=== PATIENT | female | born 1995 | race Caucasian/White ===

== ENCOUNTER 2018-06-25 08:20 | Emergency (ER) | payer MEDICAID, SELFPAY ==
[2018-06-25] VITALS (36 sets, daily range): BP systolic 87–109; BP diastolic 40–79; PULSE 75–165; RESP 10–20; TEMP 36.7; O2SAT 98–100
--- NOTE | 2018-06-25 08:40 | ED.GENADUL_ITS ---
Discharge Plan Disposition Patient Disposition: HOME Condition: Stable Discharge Details Chief Complaint: Nausea/Vomit/Diar Clinical Impression: Vomiting, Hypokalemia, Elevated liver enzymes Primary Care Provider: Terry Armenta ED Provider: Glory Minor Home Meds and New Rx's Prescriptions: Continued hydroxyzine pamoate 25 MG capsule 50 mg PO Q6H PRNRF: 0 lamotrigine 25 mg Tablet 25 mg PO BID RF: 0 buprenorphine-naloxone [Suboxone] 1 EACH film 6 mg PO DAILY RF: 0 Discontinued oseltamivir [Tamiflu] 75 MG capsule 75 mg PO BID Qty: 10 RF: 0 Discharge Instructions Instructions: Hypokalemia (ED), Acute Nausea and Vomiting (ED) Additional Instructions: Please return immediately to the emergency department if you develop any new or worsening symptoms or if you become otherwise concerned. Your liver enzyme function tests were elevated today. A hepatitis panel has been sent. It is extremely important that you make an appointment to be seen by your primary care doctor as soon as possible in follow-up for this visit. Referrals: Terry Armenta [Primary Care Provider] - Discharge Data Discharge Date/Time-TO BE ENTERED AT DEPARTURE: 06/25/18 14:25 Medical Decision Making Herlinda Paulson is a 23-year-old woman with history of anxiety, depression, opiate use in the past currently on Suboxone presenting to the emergency department with nausea and vomiting along with mild diarrhea for 2 days after using methamphetamine. On exam patient is nauseated but appears nontoxic. She is tachycardic but otherwise has a benign cardiopulmonary and abdominal exam. Concern for dehydration, metabolic/lyte derangement, gastroenteritis, methamphetamine effect (particularly as patient reports that she has had similar symptoms in the past after methamphetamine use). Exam/history is not consistent with sepsis, meningitis, acute emergent intra-abdominal or intracranial process, other acute emergent life-threatening process. Plan for screening labs, IV fluid hydration, IV Zofran, IV Ativan, telemetry. Will monitor and reassess. Labs show hypokalemia and an elevated liver enzymes. Patient does not recall having history of elevated liver enzymes. Without any tenderness of the abdomen or abdominal pain, doubt acute hepatitis as etiology of symptoms at this time. We will send hepatitis panel. Potassium repleted. Patient reported feeling much better after fluids, passed p.o. challenge without issue. Patient requesting discharge to home. I had a lengthy discussion with patient regarding return to emergency department precautions, home care, and importance of outpatient follow-up with her PCP. Patient verbalized understanding of the plan and is amenable. All questions answered. Medical Records Medical records reviewed: Yes I reviewed the patient's medical records. Lab Data Lab results reviewed: Yes I reviewed the patient's lab results. HPI General Mode of arrival: ambulatory . Date/Time Provider Initiated Documentation: 06/25/18 08:39 . Limitations to Documentation: no limitations . Information obtained by: patient . HPI Narrative: Herlinda Paulson is a 23 y/o woman with history of opiate use in the past, anxiety, depression presenting to the emergency department with vomiting. Patient reports that she is on Suboxone for opiate use in the past, but has not used recreational drugs in some time. Patient reports that 2 days ago she used methamphetamine, and since using that drug has had persistent vomiting. She reports that she has not been able to hold food or fluids down. Patient reports that she has mild abdominal pain and sore throat that developed after vomiting began, and is present only with vomiting. She denies any current pain. No fevers, shortness of breath, cough, rash. She reports some mild diarrhea and no constipation. No dysuria. Patient reports no other recent illness and no recent travel. Related Data Home Medications Medication Instructions Recorded Confirmed hydroxyzine pamoate 50 mg PO Q6H PRN tab-cap 07/04/15 06/25/18 buprenorphine-naloxone [Suboxone] 6 mg PO DAILY 05/23/17 06/25/18 lamotrigine 25 mg PO BID 06/25/18 06/25/18 Allergies Allergy/AdvReac Type Severity Reaction Status Date / Time No Known Allergies Allergy Unverified 06/25/18 17:04 General Stated Complaint: Nausea/Vomit/Diar MARGIE: 3 Review of Systems Review of Systems Constitutional: denies fevers Eyes: denies eye pain ENT: denies facial pain, dental pain, reports sore throat with vomiting Cardiovascular: denies chest pain Respiratory: denies SOB, cough GI: Reports abdominal pain during vomiting, vomiting, mild diarrhea : denies flank pain MSK: denies back pain, neck pain, arthralgias, myalgias Skin: denies rash Neuro: denies headaches, numbness, weakness [facility] Medical History Anxiety History of drug abuse Family History Mother No problems noted. Father Heart disease Social History Smoking/Tobacco Use Status: Never Drug use: Never Do you feel safe in your relationship?: Yes Exam Narrative Exam Narrative: Constitutional: Appears nauseous but non-toxic, pleasant, conversing normally HENT: head atraumatic/normocephalic/normal inspection, mucous membranes moist, posterior pharynx normal Eyes: conjunctiva normal, sclera normal, pupils 3mm b/l Neck: no stridor, normal ROM, trachea midline Chest: normal inspection Resp: normal work of breathing, LCTAB Cardio: normal rate, normal rhythm, no murmur appreciated GI: abdomen soft, non-tender, non-distended Back: normal inspection, no rash Skin: warm, dry, normal color, no rash Neuro: alert, not altered, grossly non-focal, normal tone Ext: no edema Psych: normal mood, normal affect, normal behavior Course Vital Signs Temperature 36.7 C 06/25/18 08:26 Pulse 134 H 06/25/18 08:26 Respiratory Rate 20 06/25/18 08:26 Blood Pressure 102/79 06/25/18 08:26 Pulse Oximetry 100 06/25/18 08:26 Temperature 36.7 C 06/25/18 08:26 Temperature Source Skin 06/25/18 08:26 Pulse 134 H 06/25/18 08:26 Respiratory Rate 20 06/25/18 08:26 Blood Pressure 102/79 06/25/18 08:26 Blood Pressure Position Sitting 06/25/18 08:26 Pulse Oximetry 100 06/25/18 08:26 Oxygen Delivery Method Room Air 06/25/18 08:26 Oxygen Flow Rate 0 06/25/18 08:26 Pain Level 7 06/25/18 08:26
[2018-06-25] MEDS: Normal Saline 1,000 ML 1000 ML IV (09:00)
[2018-06-25] MEDS: Ondansetron 4 MG/2 ML VIAL IVP (09:10)
[2018-06-25] MEDS: LORazepam 2 MG/ML VIAL 0.5 MG IVP (09:15)
[2018-06-25 09:24] LABS: Abs Immature Grans 0.01 k/cumm (0.0-0.09); Absolute Basophil Count 0.01 k/cumm (0.0-0.2); Absolute Eosinophil Count 0.03 k/cumm (0.0-0.7); Absolute Lymphocyte Count 2.23 k/cumm (1.2-3.4); Absolute Monocyte Count 0.67 k/cumm (0.11-0.7); Absolute Neutrophil Count 6.16 k/cumm (1.2-6.7); Basophils % 0.1; Eosinophils % 0.3; HCT 42.7 % (36.0-46.0); HGB 14.3 g/dL (12.0-15.5); Immature Grans % 0.1; Lymphocytes % 24.5; Mean Corp. HGB Concentration 33.5 g/dL (32.0-36.0); Mean Corpuscular Hemoglobin 28.7 pg (27.0-33.0); Mean Corpuscular Volume 85.6 fL (80-95); Mean Platelet Volume 9.2 fL (8.0-11.0); Monocytes % 7.4; Neutrophils % 67.6; Platelet Count 451 x1000/uL (130-400); RBC 4.99 m/cumm (4.00-5.20); White Blood Cell Count 9.11 k/cumm (4.4-10.8)
[2018-06-25 09:35] LABS: Bilirubin Small (Negative); Blood Negative (Negative); Clarity Clear; Glucose Negative (Negative); Ketones >=160 mg/dL (Negative); Leukocyte Esterase Trace (Negative); Nitrite Negative (Negative); Specific Gravity 1.025 (1.005-1.025); Urobilinogen 0.2 EU/dL (Up TO 0.2); pH 6.5 (5-8)
[2018-06-25 09:42] LABS: Bacteria Few HPF (Negative); C & S Indicated? No/Sq. Contamination; Casts Negative LPF (Negative); Crystals Negative HPF (Negative); Epithelial Cells Many HPF (Negative); Mucus Moderate (Negative); RBC Negative (0-2)
[2018-06-25 09:59] LABS: ALT 289 U/L (12-78); AST 130 U/L (15-37); Albumin 4.9 g/dL (3.4-5.0); Alkaline Phosphatase 75 U/L (46-116); Anion Gap 14.7 mmol/L (3-11); BUN 21 mg/dL (7-18); Bilirubin, Total 0.8 mg/dL (0.2-1.0); CO2 29.3 mmol/L (21.0-32.0); CREATININE 0.94 mg/dL (0.55-1.02); Calcium 9.5 mg/dL (8.5-10.1); Chloride 95 mmol/L (98-107); Glucose 76 mg/dL (70-100); Lipase 122 U/L (73-393); Sodium 139 mmol/L (136-145); Total Protein 9.3 g/dL (6.4-8.2)
[2018-06-25 10:02] LABS: Potassium 2.9 mmol/L (3.5-5.1)
[2018-06-25] MEDS: POTASSIUM CHLORIDE 20 MEQ/100 ML BAG 50 MEQ IVPB (10:14)
[2018-06-25] MEDS: Potassium Chloride 20 MEQ TABCR 40 MEQ PO (12:02)
--- NOTE | 2018-06-25 14:05 | PDOC.ERCMPRO ---
Care Management Progress Note 06/25-Dr. Lila Minor requested this CM meet with Herlinda as she is having some social issues. Met with Herlinda. Herlinda states she is going to be evicted from her apartment tomorrow because she has not paid the rent. She states she is behind with her heat and lights as well. Herlinda states things have just been worse the past six months or so. Herlinda lives alone with her dog (who she identifies as a therapy, emotional support dog for her. 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 PCP is Conner Armenta. Discussed family supports. Herlinda states that her mom lives in [place], (she states she has a good relationship with her mom) and that two of her sisters along with their boyfriends live with her mother so there isn't room for her. Herlinda states mom also has boyfriend that lives in the home. Discussed [facility]. Herlinda is in agreement with a meeting at [facility] to see if there is any assistance that they can give her. This CM called [facility] and spoke with Shai. Shai states he will meet with Herlinda this afternoon. Dr. Shanice Mionr aware and in agreement with the above. Herlinda has this CM's contact information if further assistance is needed.
--- NOTE | 2018-06-25 14:11 | CMPROGNOTE_ITS ---
Care Management Progress Note 06/25-Dr. Lila Minor requested this CM meet with Herlinda as she is having some social issues. Met with Herlinda. Herlinda states she is going to be evicted from her apartment tomorrow because she has not paid the rent. She states she is behind with her heat and lights as well. Herlinda states things have just been worse the past six months or so. Herlinda lives alone with her dog (who she identifies as a therapy, emotional support dog for her. 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 PCP is Conner Armenta. Discussed family supports. Herlinda states that her mom lives in [place], (she states she has a good relationship with her mom) and that two of her sisters along with their boyfriends live with her mother so there isn't room for her. Herlinda states mom also has boyfriend that lives in the home. Discussed [facility]. Herlinda is in agreement with a meeting at [facility] to see if there is any assistance that they can give her. This CM called [facility] and spoke with Shai. Shai states he will meet with Herlinda this afternoon. Dr. Shanice Minor aware and in agreement with the above. Herlinda has this CM's contact information if further assistance is needed.
[2018-06-25] MEDS: Ondansetron O.D.T. 4 MG TABEF PO (14:23)
--- NOTE | 2018-06-25 15:48 | NUR.NOTE ---
Nursing Note: Patient called stating that her hands were locking up and shaking. This is what was happening when she first got here. Does not know what to do? Message was given to Dr. Shanice Minor and she was going to return her call. However, patient returned and arrived here at 1548. Esha Platt.
[2018-06-26 14:49] LABS: Hepatitis A Antibody IgM Negative (NEGAT); Hepatitis B Core Antibody Negative (NEGAT); Hepatitis B surface Ag Negative (NEGAT); Hepatitis C Ab w Rflx HCV PCR Reactive (NEGAT)
== END 2018-06-25 14:25 | disposition home or self-care (01) ==
PROVIDERS: Emergency Provider Student in an Organized Health Care Education/Training Program; PCP Nurse Practitioner
DX: R11.10 Vomiting, unspecified (principal); E87.6 Hypokalemia; R94.5 Abnormal results of liver function studies
CPT/HCPCS: 36415; 80053; 81025; 83690; 86704; 86709; 86803; 87340; 96361; 96365; 96366; 96375; 99284; 81003; 81015; 85025; 87522; J2060; J2405; J3480

== ENCOUNTER 2018-06-25 15:47 | Emergency (ER) | payer MEDICAID, SELFPAY ==
[2018-06-25 15:50] VITALS: BP 104/76; PULSE 89; RESP 22; TEMP 37.2; O2SAT 100
--- NOTE | 2018-06-25 16:31 | W.ED.GENAD ---
Discharge Plan Disposition Patient Disposition: HOME Condition: Stable Discharge Details Chief Complaint: Recheck Clinical Impression: Cramping of hands, Tremor of both hands Reason For Visit: hands locking up Primary Care Provider: Terry Armenta ED Provider: Glory Minor Home Meds and New Rx's Prescriptions: Continued hydroxyzine pamoate 25 MG capsule 50 mg PO Q6H PRNRF: 0 lamotrigine 25 mg Tablet 25 mg PO BID RF: 0 buprenorphine-naloxone [Suboxone] 1 EACH film 6 mg PO DAILY RF: 0 Discharge Instructions Instructions: Muscle Cramp (ED), Anxiety (ED), Tremors (ED) Additional Instructions: Please return immediately to the emergency department if you develop any new or worsening symptoms or if you become otherwise concerned. It is extremely important that you make an appointment to be seen by your primary care doctor soon as possible. Referrals: Terry Armenta [Primary Care Provider] - Discharge Data Discharge Date/Time-TO BE ENTERED AT DEPARTURE: 06/25/18 18:15 Medical Decision Making Herlinda Fraser is a 23-year-old woman with history of anxiety, depression, opiate drug use in the past now on Suboxone who presented to the emergency department this afternoon for hand tremor and cramping after being seen earlier today for vomiting and discharge. On exam patient is well and nontoxic appearing. She does have some tremor of bilateral hands, however on observation during our conversation, while distracted hand tremor improved significantly. Her neurologic exam is nonfocal. Symptoms possibly related to hypokalemia diagnosed at last visit, possible hypomagnesemia, but suspect symptoms are likely due to anxiety. I had a lengthy discussion with the patient regarding this probability, and she agreed that symptoms do seem significantly worse with anxiety. Patient reports that she would not have presented to the emergency department, and tried to call in for advice for how to manage her anxiety at home, but decided it would be easier for her to return to emergency department and speak with the doctor in person. Magnesium not drawn earlier, plan for magnesium level. Patient feels much better without intervention and request discharge at this time. She believes that her symptoms were all related to her chronic waxing and waning anxiety. I had a lengthy discussion with the patient return to emergency department precautions, regarding anxiety management techniques, home care, and importance of outpatient follow-up with patient's PCP. Patient verbalized understanding of the plan and was amenable. All questions were answered. Medical Records Medical records reviewed: Yes I reviewed the patient's medical records. Lab Data Lab results reviewed: Yes I reviewed the patient's lab results. HPI General Mode of arrival: ambulatory. Date/Time Provider Initiated Documentation: 06/25/18 16:23. Limitations to Documentation: no limitations. Information obtained by: patient. HPI Narrative: Herlinda Paulson is a 33-year-old woman with history of anxiety, depression, opiate drug use in the past now on Suboxone who presented to the emergency department earlier today for vomiting, now returning for sensation that her hands are locking up. Patient reports that she went to [facility] after her earlier ER visit as was planned, but while there she felt that her hands had significant tremor and also started to lock up, in which her thumbs seem to cramp into her palms. Symptoms were bilateral and symmetric. Patient reports that symptoms were the same prior to her arrival in the ER for her morning visit today, but resolved during that visit and she did not mention her symptoms at that time. Patient reports that symptoms seem to have improved somewhat since arriving back in the emergency department again, but she has continued tremor of both hands. She denies weakness, numbness, tingling. She reports no further vomiting since her discharge, and otherwise feels better than she has in several days. Related Data Home Medications Medication Instructions Recorded Confirmed hydroxyzine pamoate 50 mg PO Q6H PRN tab-cap 07/04/15 06/25/18 buprenorphine-naloxone [Suboxone] 6 mg PO DAILY 05/23/17 06/25/18 lamotrigine 25 mg PO BID 06/25/18 06/25/18 Allergies Allergy/AdvReac Type Severity Reaction Status Date / Time No Known Allergies Allergy Unverified 06/25/18 17:04 General Stated Complaint: Recheck MARGIE: 4 Review of Systems Review of Systems Constitutional: denies fevers Eyes: denies eye pain ENT: denies facial pain, dental pain, sore throat Cardiovascular: denies chest pain Respiratory: denies SOB, cough GI: denies abdominal pain, vomiting, diarrhea : denies flank pain MSK: denies back pain, neck pain, arthralgias, myalgias, reports hand cramping Skin: denies rash Neuro: denies headaches, numbness, weakness, reports hand tremor PFSH Family History Mother No problems noted. Father Heart disease Social History Smoking/Tobacco Use Status: Never Drug use: Never Do you feel safe in your relationship?: Yes Exam Narrative Exam Narrative: Constitutional: well and [id number], pleasant, conversing normally HENT: head atraumatic/normocephalic/normal inspection, mucous membranes moist Eyes: conjunctiva normal, sclera normal, pupils 3mm b/l Neck: no stridor, normal ROM, trachea midline Resp: normal work of breathing Cardio: normal rate, normal rhythm Skin: warm, dry, normal color, no rash Neuro: alert, not altered, grossly non-focal, normal tone, slight tremor bilateral hands, this resolves during conversation Psych: Mildly anxious mood, normal affect, normal behavior Course Vital Signs Temperature 37.2 C 06/25/18 15:50 Pulse 89 06/25/18 15:50 Respiratory Rate 22 06/25/18 15:50 Blood Pressure 104/76 06/25/18 15:50 Pulse Oximetry 100 06/25/18 15:50 Temperature 37.2 C 06/25/18 15:50 Temperature Source Temporal Artery Scan 06/25/18 15:50 Pulse 89 06/25/18 15:50 Respiratory Rate 22 06/25/18 15:50 Blood Pressure 104/76 06/25/18 15:50 Pulse Oximetry 100 06/25/18 15:50 Oxygen Delivery Method Room Air 06/25/18 15:50 Oxygen Flow Rate 0 06/25/18 15:50
--- NOTE | 2018-06-25 17:03 | ED.GENADUL_ITS ---
Discharge Plan Disposition Patient Disposition: HOME Condition: Stable Discharge Details Chief Complaint: Recheck Clinical Impression: Cramping of hands, Tremor of both hands Reason For Visit: hands locking up Primary Care Provider: Terry Armenta ED Provider: Glory Minor Home Meds and New Rx's Prescriptions: Continued hydroxyzine pamoate 25 MG capsule 50 mg PO Q6H PRNRF: 0 lamotrigine 25 mg Tablet 25 mg PO BID RF: 0 buprenorphine-naloxone [Suboxone] 1 EACH film 6 mg PO DAILY RF: 0 Discharge Instructions Instructions: Muscle Cramp (ED), Anxiety (ED), Tremors (ED) Additional Instructions: Please return immediately to the emergency department if you develop any new or worsening symptoms or if you become otherwise concerned. It is extremely important that you make an appointment to be seen by your primary care doctor soon as possible. Referrals: Terry Armenta [Primary Care Provider] - Discharge Data Discharge Date/Time-TO BE ENTERED AT DEPARTURE: 06/25/18 18:15 Medical Decision Making Herlinda Fraser is a 23-year-old woman with history of anxiety, depression, opiate drug use in the past now on Suboxone who presented to the emergency department this afternoon for hand tremor and cramping after being seen earlier today for vomiting and discharge. On exam patient is well and nontoxic appearing. She does have some tremor of bilateral hands, however on observation during our conversation, while distracted hand tremor improved significantly. Her neurologic exam is nonfocal. Symptoms possibly related to hypokalemia diagnosed at last visit, possible hypomagnesemia, but suspect symptoms are likely due to anxiety. I had a lengthy discussion with the patient regarding this probability, and she agreed that symptoms do seem significantly worse with anxiety. Patient reports that she would not have presented to the emergency department, and tried to call in for advice for how to manage her anxiety at home, but decided it would be easier for her to return to emergency department and speak with the doctor in person. Magnesium not drawn earlier, plan for magnesium level. Patient feels much better without intervention and request discharge at this time. She believes that her symptoms were all related to her chronic waxing and waning anxiety. I had a lengthy discussion with the patient return to emergency department precautions, regarding anxiety management techniques, home care, and importance of outpatient follow-up with patient's PCP. Patient verbalized understanding of the plan and was amenable. All questions were answered. Medical Records Medical records reviewed: Yes I reviewed the patient's medical records. Lab Data Lab results reviewed: Yes I reviewed the patient's lab results. HPI General Mode of arrival: ambulatory . Date/Time Provider Initiated Documentation: 06/25/18 16:23 . Limitations to Documentation: no limitations . Information obtained by: patient . HPI Narrative: Herlinda Paulson is a 33-year-old woman with history of anxiety, depression, opiate drug use in the past now on Suboxone who presented to the emergency department earlier today for vomiting, now returning for sensation that her hands are locking up. Patient reports that she went to [facility] after her earlier ER visit as was planned, but while there she felt that her hands had significant tremor and also started to lock up, in which her thumbs seem to cramp into her palms. Symptoms were bilateral and symmetric. Patient reports that symptoms were the same prior to her arrival in the ER for her morning visit today, but resolved during that visit and she did not mention her symptoms at that time. Patient reports that symptoms seem to have improved somewhat since arriving back in the emergency department again, but she has continued tremor of both hands. She denies weakness, numbness, tingling. She reports no further vomiting since her discharge, and otherwise feels better than she has in several days. Related Data Home Medications Medication Instructions Recorded Confirmed hydroxyzine pamoate 50 mg PO Q6H PRN tab-cap 07/04/15 06/25/18 buprenorphine-naloxone [Suboxone] 6 mg PO DAILY 05/23/17 06/25/18 lamotrigine 25 mg PO BID 06/25/18 06/25/18 Allergies Allergy/AdvReac Type Severity Reaction Status Date / Time No Known Allergies Allergy Unverified 06/25/18 17:04 General Stated Complaint: Recheck MARGIE: 4 Review of Systems Review of Systems Constitutional: denies fevers Eyes: denies eye pain ENT: denies facial pain, dental pain, sore throat Cardiovascular: denies chest pain Respiratory: denies SOB, cough GI: denies abdominal pain, vomiting, diarrhea : denies flank pain MSK: denies back pain, neck pain, arthralgias, myalgias, reports hand cramping Skin: denies rash Neuro: denies headaches, numbness, weakness, reports hand tremor PFSH Family History Mother No problems noted. Father Heart disease Social History Smoking/Tobacco Use Status: Never Drug use: Never Do you feel safe in your relationship?: Yes Exam Narrative Exam Narrative: Constitutional: well and [id number], pleasant, conversing normally HENT: head atraumatic/normocephalic/normal inspection, mucous membranes moist Eyes: conjunctiva normal, sclera normal, pupils 3mm b/l Neck: no stridor, normal ROM, trachea midline Resp: normal work of breathing Cardio: normal rate, normal rhythm Skin: warm, dry, normal color, no rash Neuro: alert, not altered, grossly non-focal, normal tone, slight tremor bilateral hands, this resolves during conversation Psych: Mildly anxious mood, normal affect, normal behavior Course Vital Signs Temperature 37.2 C 06/25/18 15:50 Pulse 89 06/25/18 15:50 Respiratory Rate 22 06/25/18 15:50 Blood Pressure 104/76 06/25/18 15:50 Pulse Oximetry 100 06/25/18 15:50 Temperature 37.2 C 06/25/18 15:50 Temperature Source Temporal Artery Scan 06/25/18 15:50 Pulse 89 06/25/18 15:50 Respiratory Rate 22 06/25/18 15:50 Blood Pressure 104/76 06/25/18 15:50 Pulse Oximetry 100 06/25/18 15:50 Oxygen Delivery Method Room Air 06/25/18 15:50 Oxygen Flow Rate 0 06/25/18 15:50
[2018-06-25 17:14] LABS: Magnesium 2.5 mg/dL (1.8-2.4)
== END 2018-06-25 18:15 | disposition home or self-care (01) ==
PROVIDERS: Emergency Provider Student in an Organized Health Care Education/Training Program; PCP Nurse Practitioner
DX: F41.9 Anxiety disorder, unspecified (principal)
CPT/HCPCS: 36415; 99283; 83735; 99282

== ENCOUNTER 2018-12-29 01:47 | Emergency (ER) | payer MEDICAID, SELFPAY ==
[2018-12-29] MEDS: Naloxone 0.4 MG/ML VIAL (01:50)
[2018-12-29 01:52] VITALS: BP 123/71; PULSE 136; TEMP 36.8; O2SAT 99
--- NOTE | 2018-12-29 01:54 | ED.GENADUL_ITS ---
Discharge Plan Disposition Patient Disposition: AGAINST MEDICAL ADVICE Condition: Stable Discharge Details Chief Complaint: OD/Poison Clinical Impression: Accidental heroin overdose Primary Care Provider: Terry Armenta ED Provider: Aftab Enrique Home Meds and New Rx's Prescriptions: Continued hydroxyzine pamoate 25 MG capsule 50 mg PO Q6H PRNRF: 0 lamotrigine 25 mg Tablet 25 mg PO BID RF: 0 buprenorphine-naloxone [Suboxone] 1 EACH film 6 mg PO DAILY RF: 0 Discharge Instructions Instructions: Narcotic Abuse (ED) Additional Instructions: You are leaving against our advice and recommendation. Heroine is extremely addictive and a very life-threatening medication. Please do your best to avoid using this in the future. Please contact us, the disaster recovery analyst, if you want any help in beating the addictive properties of this medication. If you notice any worsening of your symptoms, or any new symptoms such as vomiting, diarrhea, fever, chills, shortness of breath, chest pain, numbness, weakness, or fainting , please return immediately to the emergency department for reevaluation. Please follow up with your primary care provider as soon as possible for reassessment and reevaluation. As always, it was a pleasure participating in your medical care today. Referrals: Terry Armenta [Primary Care Provider] - Medical Decision Making This is a 23-year-old female with a past medical history of heroin use and illicit drug use who presents today for evaluation of heroin overdose. 30 minutes prior to arrival the patient shot up with heroin per her significant other. Along after which she had agonal respirations, and was unresponsive. They had no Narcan at the house so they immediately drove to the ER. Upon her arrival to the ED she was obtunded, GCS was 3, agonal respirations. Patient was immediately given 2 mg of Narcan intranasally by myself. She was started on nonrebreather, and within seconds she returned to normal mentation, normal breathing. She had one significant episode of emesis that was all. Repeat neurologic exam was normal. Patient denies any attempt at suicide, and suicidal ideations with thoughts, or intent for self-harm. Heroin was being used for recreational purposes. She denies any alcohol or any other additive medications. At this time with the patient's complete return to normal mentation and breathing, we will observe her for greater than an hour and a half. We will give her fluid bolus, evaluate for any significant electrolyte abnormalities and reassess. 2:16 AM The patient is decided that she no longer wants to stay in the emergency department. She initially immediately tried to walk out with her IV in, we were able to redirect her back to the room without confrontation. She is requesting to leave immediately. I had a discussion with her regarding the importance of staying for observation, the potential life-threatening component of going home and having the Narcan wear off and her symptoms return. She understands this. I discussed the risk of , permanent disability, or life-threatening event happening with her current decision she understands. The patient is able to speak clearly. There is no demonstration of any slurring of speech. There is evidence of clear decision making capacity. Patient is able to ambulate well without any difficulty. There are no signs of ataxia or stumbling motions. I also discussed all these things with the patient's significant other and he to understands. I was able to give her the [facility] issued Narcan, to go home with. Patient is leaving against my medical advice. I have extensively reviewed the treatment plan and discharge instructions with the patient and their family. I have addressed all patient concerns at this time. The patient and family was made aware of what symptoms to monitor for that would warrant a return to the emergency department. Discussed the plan with the patient and family, they demonstrate verbal understanding and agreement with our assessment and plan at this time. HPI General Date/Time Provider Initiated Documentation: 12/29/18 01:53 . HPI Narrative: This is a 23-year-old female with a past medical history of drug abuse, anxiety and depression who presents today for evaluation heroin overdose. She was brought in by her significant other unresponsive. Allegedly roughly 30 minutes prior to arrival she had shot up heroin, and slowly became unresponsive with decreased agonal respirations. Per her significant other she shoots up on a daily basis. However this was a new batch. He denies any recent suicidal ideations, the heroin use was recreational at this time. They deny cutting the medication with anything new. They deny any other alcohol or other associated drugs. No other complaints at this time. No other modifying factors. They did not have any Narcan at home and so they came here. Related Data Home Medications Medication Instructions Recorded Confirmed hydroxyzine pamoate 50 mg PO Q6H PRN tab-cap 07/04/15 06/25/18 buprenorphine-naloxone [Suboxone] 6 mg PO DAILY 05/23/17 06/25/18 lamotrigine 25 mg PO BID 06/25/18 06/25/18 Allergies Allergy/AdvReac Type Severity Reaction Status Date / Time No Known Allergies Allergy Unverified 12/29/18 01:58 General MARGIE: 4 Review of Systems Review of Systems ROS Unobtainable: All systems reviewed & are unremarkable except as noted in HPI and below PFSH Family History Mother No problems noted. Father Heart disease Social History Smoking/Tobacco Use Status: Never Drug use: Never Substance use type: heroin Do you feel safe in your relationship?: Yes Exam Narrative Exam Narrative: Exam pre-Narcan: 1.Const: Well-nourished, Well-developed, appearing stated age 2.Eyes: Pinpoint pupils, no conjunctival injection, and symmetrical lids. 3.ENT: Atraumatic external nose and ears. Moist MM. Neck: Symmetric, trachea midline, No thyromegaly. 4.CVS: +S1/S2, No murmurs or gallops. Peripheral pulses 2+ and equal in all extremities. Brisk capillary refill in all extremities. 5.RESP: Bradypnea, agonal respirations, clear to auscultation bilaterally. No wheezes rales or rhonchi 6.GI: Soft, Nontender/Nondistended, No hepatosplenomegaly. No guarding or rebound. 7.MSK: Normocephalic/Atraumatic, Extremities w/o deformity or ttp No cyanosis or clubbing, Normal movement of all extremities 8.Skin: Warm, Dry. No rashes or lesions. 9.Neuro: Limp, GCS of 3 10.Psych: Completely obtunded Exam post Narcan: 1.Const: Well-nourished, Well-developed, appearing stated age 2.Eyes: PERRL, no conjunctival injection, and symmetrical lids. 3.ENT: Atraumatic external nose and ears. Moist MM. Neck: Symmetric, trachea midline, No thyromegaly. 4.CVS: +S1/S2, No murmurs or gallops. Peripheral pulses 2+ and equal in all extremities. Brisk capillary refill in all extremities. 5.RESP: Unlabored respiratory effort. Clear to auscultation bilaterally. No wheezes rales or rhonchi 6.GI: Soft, Nontender/Nondistended, No hepatosplenomegaly. No guarding or rebound. 7.MSK: Normocephalic/Atraumatic, Extremities w/o deformity or ttp No cyanosis or clubbing, Normal movement of all extremities 8.Skin: Warm, Dry. No rashes or lesions. 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 Sensation grossly intact, no focal neurologic deficits. 10.Psych: (AAO) x3. Appropriate mood and affect
[2018-12-29 01:55] VITALS: BP 126/73; PULSE 135; RESP 12; O2SAT 99
[2018-12-29] MEDS: Normal Saline 1,000 ML 1000 ML IV (01:55)
[2018-12-29 02:00] VITALS: RESP 20
[2018-12-29 02:05] VITALS: BP 115/77; PULSE 108; RESP 20; O2SAT 99
[2018-12-29] MEDS: Ondansetron 4 MG/2 ML VIAL IVP (02:06)
[2018-12-29 02:15] VITALS: BP 132/71; PULSE 136; RESP 6; TEMP 36
[2018-12-29 02:16] LABS: Abs Immature Grans 0.03 k/cumm (0.0-0.09); HGB 13.8 g/dL (12.0-15.5); Mean Corp. HGB Concentration 32.1 g/dL (32.0-36.0); Mean Corpuscular Hemoglobin 28.2 pg (27.0-33.0); Mean Corpuscular Volume 87.8 fL (80-95); Platelet Count 610 x1000/uL (130-400); RBC Distribution Width 13.8 % (11.7-14.6); White Blood Cell Count 16.37 k/cumm (4.4-10.8)
[2018-12-29 02:30] VITALS: BP 123/71; PULSE 136; O2SAT 99
[2018-12-29 02:47] LABS: Absolute Eosinophil Count 0.16 k/cumm (0.0-0.7); Absolute Monocyte Count 1.31 k/cumm (0.11-0.7); Absolute Neutrophil Count 5.89 k/cumm (1.2-6.7); Atypical Lymphocytes % 3
[2018-12-29 02:48] LABS: Diff Comment Manual Differential; RBC Morphology Normal
[2018-12-29 02:50] LABS: ALT 95 U/L (14-59); AST 40 U/L (15-37); Albumin 4.2 g/dL (3.4-5.0); Alkaline Phosphatase 70 U/L (46-116); Anion Gap 13.1 mmol/L (3-11); BUN 20 mg/dL (7-18); Bilirubin, Total 0.3 mg/dL (0.2-1.0); CO2 28.9 mmol/L (21.0-32.0); CREATININE 0.93 mg/dL (0.55-1.02); Calcium 8.8 mg/dL (8.5-10.1); Chloride 101 mmol/L (98-107); Glucose 120 mg/dL (70-100); Potassium 3.6 mmol/L (3.5-5.1); Sodium 143 mmol/L (136-145); Total Protein 7.9 g/dL (6.4-8.2)
[2018-12-29 03:03] LABS: HCG Quant, Pregnancy < 1 mIU/mL (1-3)
[2018-12-29 03:06] LABS: ETHANOL BLOOD < 3.0 mg/dL (<3)
== END 2018-12-29 02:20 | disposition left against medical advice (07) ==
LOC: ER 02:25
PROVIDERS: Emergency Provider Student in an Organized Health Care Education/Training Program; PCP Nurse Practitioner
DX: T40.1X1A Poisoning by heroin, accidental (unintentional), initial encounter (principal); R06.89 Other abnormalities of breathing; R11.10 Vomiting, unspecified; R40.2432 Glasgow coma scale score 3-8, at arrival to emergency department; Z53.29 Procedure and treatment not carried out because of patient's decision for other reasons
CPT/HCPCS: 36415; 80053; 96361; 96374; 99285; 80320; 84702; 85025; 99284; J2310; J2405

== ENCOUNTER 2019-09-20 17:49 | Emergency (ER) | payer MEDICAID, SELFPAY ==
[2019-09-20 17:54] VITALS: BP 119/81; PULSE 89; RESP 16; TEMP 37.2; O2SAT 97
--- NOTE | 2019-09-20 18:51 | ED.GENADUL_ITS ---
Discharge Plan Disposition Patient Disposition: HOME Condition: Stable Discharge Details Chief Complaint: RashLesion Clinical Impression: Abscess Primary Care Provider: Terry Armenta ED Provider: Brigette Mancuso Home Meds and New Rx's Prescriptions: New mupirocin 2 % ointment 1 applic TP TID Qty: 15 RF: 0 sulfamethoxazole-trimethoprim [Bactrim DS] 800-160 mg tablet 1 tab PO BID Qty: 20 RF: 0 Discharge Instructions Instructions: Abscess (ED) Additional Instructions: Warm compresses to the area frequently. Wash area gently with soap and water 2-3 times a day. Apply topical antibiotic ointment into the wound as discussed using a Q-tip. Use oral antibiotics as prescribed. Tylenol or Motrin for soreness if needed [id number]. Wound culture pending. Expect improvement in the next 3 to 5 days. If not improving have reevaluation with PCP or in the emergency room. Return for worsening, concerns, alarming symptoms, fevers Discharge Data Discharge Date/Time-TO BE ENTERED AT DEPARTURE: 09/20/19 18:50 Medical Decision Making This is a 24-year-old patient presenting for concerns of a developing abscess beneath her right bra line. Patient reports it began as a pimple approximately 1 1/2 weeks ago which she has picked at scabs. Patient reports minimal drainage. Patient reports that area is increasingly swollen and sore. Patient does have a history of abscess in the past and feels she may require drainage. Patient does have a small area approximately 2 cm with erythema, tenderness and minimal fluctuation. Patient appears nontoxic. After discussion with the patient her preference is to attempt incision and drainage at this time to exped ite improvement. After Betadine prep, lidocaine locally area was incised with very minimal drainage. Wound culture obtained. Patient tolerated procedure, wound dressing placed. Will provide Bactrim for antibiotic coverage to cover MRSA. We will also provide Bactroban for topical treatment. Encourage warm compresses. Encouraged return if not improving the next 3 to 5 days. Patient reports her understanding The patient was stable and requested discharge. Prior to discharge, my usual and customary return precautions were reviewed with the patient - this included follow-up instructions and reasons to return to the Emergency Department if conditions worsens, does not improve as expected, or other new concerns arise.. HPI General Date/Time Provider Initiated Documentation: 09/20/19 17:50 . HPI Narrative: This is a 24-year-old patient presenting to the emergency room for complaints of wound on her left back. Patient reports began as a small pimple beneath her bra line. Patient reports present for approximately 1-1/2 weeks. Patient reports that area is increasingly swollen and painful. She did scratch a scab off a few times. Patient denies fever, chills, nausea, vomiting. Denies ill feeling at this time. Patient reports mild drainage present. Patient denies any chest pain difficulty breathing shortness of breath or wheezing. No other complaints or concerns. Patient does report history of abscess in the past in her right AC. No cough. No abdominal pain. Patient denies any other concerns or complaints today. Related Data Home Medications Medication Instructions Recorded Confirmed mupirocin 1 applic TP TID #15 gm 09/20/19 sulfamethoxazole-trimethoprim 1 tab PO BID #20 tab 09/20/19 [Bactrim DS] Previous Rx's Medication Instructions Recorded mupirocin 1 applic TP TID #15 gm 09/20/19 sulfamethoxazole-trimethoprim 1 tab PO BID #20 tab 09/20/19 [Bactrim DS] Allergies Allergy/AdvReac Type Severity Reaction Status Date / Time No Known Allergies Allergy Unverified 09/20/19 17:58 General Stated Complaint: RashLesion MARGIE: 3 Review of Systems All systems reviewed & are unremarkable except as noted in HPI and below Constitutional Constitutional: Denies chills, Denies fatigue, Denies fever(s), Denies headache(s) and Denies malaise ENT Ears, Nose, Mouth, and Throat: Denies headache(s) Cardiovascular Cardiovascular: Denies dyspnea Respiratory Respiratory: Denies cough, Denies dyspnea and Denies other Gastrointestinal Gastrointestinal: Denies abdominal pain, Denies diarrhea, Denies nausea and Denies vomiting Neurologic Neurologic: Denies headache(s) Endocrine Endocrine: Denies fatigue PFSH Family History Mother No problems noted. Father Heart disease Social History Smoking/Tobacco Use Status: Never Drug use: Never Substance use type: heroin Do you feel safe in your relationship?: Yes Exam Narrative Exam Narrative: CONST: Healthy appearing patient, in no acute distress. Well hydrated. Alert and oriented. HENMT: Head nomocephalic, normal to inspection. Atraumatic. Hearing grossly normal. EYES: General normal appearance. Alignment normal. Eyelids normal. Conjunctiva normal. NECK: Normal visual inspection. FROM. Trachea midline. No Midline tenderness. CHEST: Normal insepection of the chest. RESP: Normal respiratory effort. Speaking full sentences. No cough. No audible wheezing. No retractions. CARDIO: No JVD. MUSCULOSKELETAL: Normal Gait. FROM of all extremities. SKIN: Early abscess at patient's right lateral mid back beneath the bra line. patient has 2 cm area of erythema with induration and tenderness with a central partially draining wound. Minimal fluctuation is noted. NEURO: Alert and awake. Speech clear. PSYCH: Normal affect. Cooperative. Course Vital Signs Vital signs: Vital Signs Temperature 37.2 C 09/20/19 17:54 Pulse 89 09/20/19 17:54 Respiratory Rate 16 09/20/19 17:54 Blood Pressure 119/81 09/20/19 17:54 Pulse Oximetry 97 09/20/19 17:54 Temperature 37.2 C 09/20/19 17:54 Temperature Source Temporal Artery Scan 09/20/19 17:54 Pulse 89 09/20/19 17:54 Respiratory Rate 16 09/20/19 17:54 Respiratory Effort 09/20/19 17:59 Blood Pressure 119/81 09/20/19 17:54 Blood Pressure Position Sitting 09/20/19 17:54 Pulse Oximetry 97 09/20/19 17:54 Oxygen Delivery Method Room Air 09/20/19 17:54 Oxygen Flow Rate 0 09/20/19 17:54 Pain Level 3 09/20/19 17:54 Procedures Abscess I/D Site: Back Side (if applicable): Left Local Anesthetic: Lidocaine 1% Amount of anesthesia used (mL): 3.5 Technique: Incised with #11 Blade Amount of fluid expressed (mL): 0.5 Irrigation: Yes Packing used?: None
== END 2019-09-20 18:50 | disposition home or self-care (01) ==
LOC: ER 19:03
PROVIDERS: Emergency Provider Physician Assistant; PCP Nurse Practitioner
DX: L02.212 Cutaneous abscess of back [any part, except buttock and flank] (principal)
CPT/HCPCS: 10060; 87077; 87070; 87186; 87205

== ENCOUNTER 2020-02-09 08:26 | Outpatient (CLI) | payer MEDICAID, SELFPAY ==
--- NOTE | 2020-02-09 08:30 | RT.EKG_ITS ---
APPROVED REPORT Exam: Resting ECG Patient Location: O HR:60 bpm ECG Measurements Heart Rate 60 AXIS [place] 130 P 36 QRSd 82 QRS 39 QT 431 T 59 QTc 432 Conclusion Sinus rhythm...normal P axis, V-rate 60- 99 Normal Electrocardiogram
== END 2020-02-09 08:46 ==
PROVIDERS: PCP Nurse Practitioner; Visit Provider Family Medicine
DX: Z79.899 Other long term (current) drug therapy (principal)
CPT/HCPCS: 93005; 93010

== ENCOUNTER 2022-03-22 05:40 | Emergency (ER) | payer MEDICAID, SELFPAY ==
[2022-03-22 05:46] VITALS: BP 147/84; PULSE 101; RESP 16; TEMP 36.3; O2SAT 99
[2022-03-22] MEDS: Clindamycin 150 MG CAP, 12 CAPS/BTL 1800 MG (06:00)
--- NOTE | 2022-03-22 06:29 | ED.GENADUL_ITS ---
Discharge Plan Disposition Patient Disposition: Home Condition: Good Discharge Details Clinical Impression: Cellulitis of axilla, left Primary Care Provider: Terry Armenta ED Provider: Aftab Enrique Home Meds and New Rx's Prescriptions: New clindamycin HCl [Cleocin HCl] 150 mg capsule 450 mg PO QID 10 Days Qty: 120 0RF clindamycin phosphate 1 % foam 1 applic topical DAILY Qty: 100 0RF Discharge Instructions Instructions: Cellulitis (ED) Additional Instructions: Please take the clindamycin oral antibiotic as directed. Please use the wash as directed. Please take a probiotic to plant any diarrhea while on the antibiotic. If the lesion increases in size, or becomes fluid-filled you may need to return to have it drained. If you notice any worsening of your symptoms, or any new symptoms such as vomiting, diarrhea, fever, chills, shortness of breath, chest pain, numbness, weakness, or fainting , please return immediately to the emergency department for reevaluation. Please follow up with your primary care provider as soon as possible for reassessment and reevaluation. As always, it was a pleasure participating in your medical care today. Referrals: Terry Armenta [Primary Care Provider] - Discharge Data Discharge Date/Time-TO BE ENTERED AT DEPARTURE: 03/22/22 06:08 Medical Decision Making 26-year-old female with past medical history of IV drug use in the past but has been clean for the last month or so, presents today for lesion in her left axilla. Patient states that is been present for the last week, she had 2 lesions, the first 1 grew to a notable size and then drained on its own, the second 1 is now large and tender but has not drained. She denies any fever or chills. Pain is made worse with palpation and movement. Improved by nothing. She has had abscesses in the past. No other complaints at this time. No other modifying factors. Exam demonstrates large tender lesion in the left axilla, no fluctuance, no fluid collection focally on bedside ultrasound. Differential is highest for cellulitis. Will give clindamycin here and a prescription for home. Recommend clindamycin wash as well at home. Patient was seen on downtime, note is written later. I have extensively reviewed the treatment plan and discharge instructions with the patient. I have addressed all patient concerns at this time. The patient was made aware of what symptoms to monitor for that would warrant a return to the emergency department. Discussed the plan with the patient, they demonstrate verbal understanding and agreement with our assessment and plan at this time. The documentation in this chart was dictated using [employer] dictation software. Please excuse any dictation errors. Sign Out No HPI HPI Narrative: 26-year-old female with past medical history of IV drug use in the past but has been clean for the last month or so, presents today for lesion in her left axilla. Patient states that is been present for the last week, she had 2 lesions, the first 1 grew to a notable size and then drained on its own, the second 1 is now large and tender but has not drained. She denies any fever or chills. Pain is made worse with palpation and movement. Improved by nothing. She has had abscesses in the past. No other complaints at this time. No other modifying factors. Related Data Home Medications Medication Instructions Recorded Confirmed clindamycin HCl 150 mg capsule 450 mg PO QID 10 days #120 caps 03/22/22 (Cleocin HCl) clindamycin phosphate 1 % topical 1 applic topical DAILY #100 grams 03/22/22 foam Previous Rx's Medication Instructions Recorded clindamycin HCl 150 mg capsule 450 mg PO QID 10 days #120 caps 03/22/22 (Cleocin HCl) clindamycin phosphate 1 % topical 1 applic topical DAILY #100 grams 03/22/22 foam Allergies Allergy/AdvReac Type Severity Reaction Status Date / Time Opioids - Morphine Analogues Allergy Unverified 03/22/22 05:53 Penicillins Allergy Unverified 03/22/22 05:53 General Stated Complaint: Cellulitis MARGIE: 4 Review of Systems All systems reviewed & are unremarkable except as noted in HPI and below PFSH All Active Problems (Updated 03/22/22 @ 06:34 by Aftab Enrique DO) Cellulitis of axilla, left (Acute) Medical History Anxiety History of drug abuse Family History Mother No problems noted. Father Heart disease Social History Smoking/Tobacco Use Status: Never Smoking risk assessment performed?: Yes Alcohol Intake: never Drug use: Never Substance use type: heroin Do you feel safe in your relationship?: Yes Exam Narrative Exam Narrative: 1.Const: Well-nourished, Well-developed, appearing stated age 2.Eyes: PERRL, no conjunctival injection, and symmetrical lids. 3.ENT: Atraumatic external nose and ears. Moist MM. Neck: Symmetric, trachea midline, No thyromegaly. 4.CVS: +S1/S2, No murmurs or gallops. Peripheral pulses 2+ and equal in all extremities. Brisk capillary refill in all extremities. 5.RESP: Unlabored respiratory effort. Clear to auscultation bilaterally. No wheezes rales or rhonchi 6.GI: Soft, Nontender/Nondistended, No hepatosplenomegaly. No guarding or rebound. 7.MSK: Normocephalic/Atraumatic, Extremities w/o deformity or ttp No cyanosis or clubbing, Normal movement of all extremities 8.Skin: Left axilla demonstrates a cellulitic lesion roughly 1 cm x 2 cm. No fluctuance at this time, mild induration. No oozing or drainage. Bedside ultrasound demonstrates some cobblestoning but no fluid collection focally. 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 Sensation grossly intact, no focal neurologic deficits. 10.Psych: (AAO) x3. Appropriate mood and affect Course Vital Signs Vital signs: Vital Signs Temperature 36.3 C L 03/22/22 05:46 Pulse 101 H 03/22/22 05:46 Respiratory Rate 16 03/22/22 05:46 Blood Pressure 147/84 H 03/22/22 05:46 Pulse Oximetry 99 03/22/22 05:46 Temperature 36.3 C L 03/22/22 05:46 Temperature Source Temporal Artery Scan 03/22/22 05:46 Pulse 101 H 03/22/22 05:46 Respiratory Rate 16 03/22/22 05:46 Respiratory Effort 03/22/22 05:46 Blood Pressure 147/84 H 03/22/22 05:46 Blood Pressure Position Sitting 03/22/22 05:46 Pulse Oximetry 99 03/22/22 05:46 Oxygen Delivery Method Room Air 03/22/22 05:46 Oxygen Flow Rate 0 03/22/22 05:46 Pain Level 7 03/22/22 05:55
== END 2022-03-22 06:08 | disposition home or self-care (01) ==
PROVIDERS: Emergency Provider Student in an Organized Health Care Education/Training Program; PCP Nurse Practitioner
DX: L03.112 Cellulitis of left axilla (principal)
CPT/HCPCS: 99283

== ENCOUNTER 2022-07-08 23:40 | Emergency (ER) | payer MEDICAID, SELFPAY ==
[2022-07-08 23:43] VITALS: BP 111/72; PULSE 96; RESP 20; TEMP 37.6; O2SAT 98
--- NOTE | 2022-07-09 | DI.CT_ITS ---
Exam(s) CT NECK W EXAM: CT NECK W CLINICAL HISTORY: R ear infection/lesion, neck lymphadenopathy. TECHNIQUE: Imaging Protocol: Axial computed tomography images with coronal and sagittal reformatted images were created and reviewed CONTRAST MATERIAL: Intravenous: Omnipaque 350 Contrast volume:100 ml contrast COMPARISON: No exams were available for comparison FINDINGS: Exam is limited by patient motion. Parotids/submandibular/thyroid gland: Normal. Lymphadenopathy: There are multiple mildly enlarged lymph nodes seen in the right periauricular regio n and inferiorly in the right neck. Findings are reactive. Carotids/Jugular: No significant stenosis or dissection.. Soft tissues: Soft tissue swelling in the right periauricular region. No evidence of drainable absce ss. No bony destruction. The epiglottis and vocal cords are within normal limits. Lungs: Images through both lung apices are unremarkable. Bones: Degenerative changes of the cervical spine. Visualized portions of the brain and orbits: Unremarkable. Sinuses and mastoids: Clear. IMPRESSION: Right periauricular soft tissue swelling and adjacent reactive lymph nodes. RADIATION DOSE DELIVERED: 488.94mGy.cm Total DLP DATA REPOSITORY: All CT scans at this facility are submitted to the National Radiology Data Registry (NRDR) Dose Index Registry (DIR) with the [employer] (A[employer]). RADIATION OPTIMIZATION: All CT scans at this facility use at least one of these dose optimization te chniques: automated exposure control; mA and/or kV adjustment per patient size (includes targeted exa ms where dose is matched to clinical indication); or iterative reconstruction.
--- NOTE | 2022-07-09 00:12 | ED.GENADUL_ITS ---
Discharge Plan Disposition Patient Disposition: Home Condition: Stable Discharge Details Clinical Impression: Otitis externa of right ear, Cellulitis of right ear Primary Care Provider: Terry Armenta ED Provider: Yenny Bell Home Meds and New Rx's Prescriptions: New ciprofloxacin HCl 500 mg tablet 500 mg PO BID 10 Days Qty: 20 0RF clindamycin HCl 150 mg capsule 450 mg PO TID 7 Days Qty: 63 0RF Discharge Instructions Instructions: Cellulitis (ED), Otitis Externa (ED) Additional Instructions: Your CT scan shows that you likely have an infection of your ear canal called otitis externa. You also appear to have a skin infection of your external ear. Prescriptions for 2 antibiotics have been sent electronically to your pharmacy to take as directed until finished. There is a risk of antibiotic associated diarrhea with taking these antibiotics. It is recommended to take a probiotic while taking these antibiotics. Drink plenty of fluids and get plenty of rest. Alternate tylenol and motrin as needed and directed for pain. You have been placed on our care management list to arrange for a follow-up appointment with the Ear, Nose and Throat doctor this week for reevaluation. Return immediately to the emergency department if you develop any worsening or new concerning symptoms such as fever, worsening pain or any other concerns. Referrals: Hernandez Jimenes DO [OSTEOPATHIC DOCTOR] - Anibal Mustafa MD [ [facility] STAFF PHYSICIAN] - Discharge Data Discharge Physician: Yenny Bell Medical Decision Making [id number] -- 27-year-old female with a history of fentanyl and cocaine use presents for right external ear lesions for the past 2 to 3 weeks, worse today. She denies any history of IV drug use. She appears uncomfortable but nontoxic. Her entire external ear has moderate edema and tenderness in addition to mild erythema. She has crusted lesions on inner aspects of the external ear near the canal and lobule. There is also surrounding tender lymphadenopathy. Normal oropharynx. No axillary lymphadenopathy. Suspect otitis externa or cellulitis in the setting of external ear infection worsened by scratching. Consider abscess. Will obtain screening labs and CT neck. We will give a dose of IV Toradol for pain relief. We will give a dose of clindamycin IV for concern for cellulitis or MRSA. 0200 --Labs and imaging reviewed. Normal white blood cell count. Potassium 3.3. Normal ESR. CRP elevated at 2.56. CT reviewed and notes: IMPRESSION: There is fat stranding and subcutaneous edema of the right ear.? Findings are suggestive of otitis externa.? There are mild surrounding enlarged periauricular lymph nodes. Enlarged lymph nodes along the cervical chain and posterior triangle on the right. We will cover for severe otitis externa with a dose of IV ciprofloxacin here. Malignant otitis externa seems less likely as patient has no complaint of otic discharge and her ESR is within normal limits and there is no evidence of osteomyelitis on CT. We will send home with a prescription for oral Cipro. We will also send with a prescription for clindamycin to cover cellulitis, possible MRSA. Patient advised on the importance of keeping area clean and dry and to avoid scratching or picking. She is advised to take probiotics while taking these 2 antibiotics. Risks of antibiotic associated diarrhea explained. Patient placed on ENT follow-up list for reevaluation this week. She is advised to return here immediately with any worsening or new concerning symptoms. Medical Records Medical records reviewed: Yes I reviewed the patient's medical records. Imaging Data Radiologic Study: Radiologist's impression: CT Neck With Contrast Exam date and time: 07/09/2022 12:41 AM Age: 27 years old Clinical indication: Patient HX: R ear infection/lesion, neck lymphadenopathy. R/O abscess ear/temporal/auricular area; Additional info: Ear pain and swelling for 2 weeks TECHNIQUE: Imaging protocol: Computed tomography of the neck with contrast. Radiation optimization: All CT scans at this facility use at least one of these dose optimization techniques: automated exposure control; mA and/or kV adjustment per patient size (includes targeted exams where dose is matched to clinical indication); or iterative reconstruction. Contrast material: OMNIPAQUE 350; Contrast volume: 100 ml; Contrast route: INTRAVENOUS (IV);? COMPARISON: MRI - BRAIN WO CONTRAST 05/09/2016 4:25 PM FINDINGS: Pharynx: Unremarkable. No significant tonsillar enlargement. Larynx: Unremarkable. Epiglottis is normal. Prevertebral and retropharyngeal spaces: Unremarkable. Salivary glands: Normal. Glands are normal in size. Thyroid: Normal. No enlarged or calcified nodules.? Lymph nodes: See Soft tissues finding. Mastoid air cells:? Unremarkable. Trachea: Visualized trachea is unremarkable. Lungs: Unremarkable as visualized. Bones/joints: Unremarkable. No acute fracture. Soft tissues: There is fat stranding and subcutaneous edema of the right ear. There are mild surrounding enlarged periauricular lymph nodes. Enlarged lymph nodes along the cervical chain and posterior triangle on the right. IMPRESSION: There is fat stranding and subcutaneous edema of the right ear.? Findings are suggestive of otitis externa.? There are mild surrounding enlarged periauricular lymph nodes. Enlarged lymph nodes along the cervical chain and posterior triangle on the right. Lab Data Lab results reviewed: Yes I reviewed the patient's lab results. Labs: Laboratory Tests Range/Units 07/09/22 07/09/22 07/09/22 00:28 00:28 00:28 WBC (4.4-10.8) 10^3/uL 9.57 RBC (3.93-5.22) 10^6/uL 4.79 Hgb (11.2-15.7) g/dL 12.7 Hct (36.0-46.0) % 39.6 MCV (80-95) fL 83 MCH (27.0-33.0) pg 26.5 L MCHC (32.0-36.0) % 32.1 RDW (11.7-14.6) % 13.1 Plt Count (130-400) 10^3/uL 288 MPV (8.0-11.0) fL 8.6 Immature Gran % 0.2 Neutrophils % 83.8 Lymphocytes % 8.2 Monocytes % 6.9 Eosinophils % 0.7 Basophils % 0.2 Nucleated RBC % (0.0-0.3) % 0.0 Absolute Neutrophils (1.2-6.7) 10^3/uL 8.02 H Absolute Lymphocytes (1.2-3.4) 10^3/uL 0.78 L Absolute Monocytes (0.1-0.8) 10^3/uL 0.66 Absolute Eosinophils (0.0-0.7) 10^3/uL 0.07 Absolute Basophils (0.0-0.2) 10^3/uL 0.02 ESR (0-20) mm/hr Sodium (136-145) mmol/L 138 Potassium (3.5-5.1) mmol/L 3.3 L Chloride (98-107) mmol/L 100 Carbon Dioxide (21.0-32.0) mmol/L 33.2 H Anion Gap (3-11) mmol/L 4.8 BUN (7-18) mg/dL 14 Creatinine (0.55-1.02) mg/dL 0.7 Est GFR (CKD-EPI 2020) (mL/min/1.73m2) 119.99 Glucose (74-106) mg/dL 104 Calcium (8.5-10.1) mg/dL 8.8 Total Bilirubin (0.2-1.0) mg/dL 0.6 AST (15-37) U/L 26 ALT (14-59) U/L 45 Alkaline Phosphatase (46-116) U/L 85 C-Reactive Protein (0.0-0.3) mg/dL 2.56 H Total Protein (6.4-8.2) g/dL 7.5 Albumin (3.4-5.0) g/dL 3.9 Range/Units 07/09/22 00:28 WBC (4.4-10.8) 10^3/uL RBC (3.93-5.22) 10^6/uL Hgb (11.2-15.7) g/dL Hct (36.0-46.0) % MCV (80-95) fL MCH (27.0-33.0) pg MCHC (32.0-36.0) % RDW (11.7-14.6) % Plt Count (130-400) 10^3/uL MPV (8.0-11.0) fL Immature Gran % Neutrophils % Lymphocytes % Monocytes % Eosinophils % Basophils % Nucleated RBC % (0.0-0.3) % Absolute Neutrophils (1.2-6.7) 10^3/uL Absolute Lymphocytes (1.2-3.4) 10^3/uL Absolute Monocytes (0.1-0.8) 10^3/uL Absolute Eosinophils (0.0-0.7) 10^3/uL Absolute Basophils (0.0-0.2) 10^3/uL ESR (0-20) mm/hr 9 Sodium (136-145) mmol/L Potassium (3.5-5.1) mmol/L Chloride (98-107) mmol/L Carbon Dioxide (21.0-32.0) mmol/L Anion Gap (3-11) mmol/L BUN (7-18) mg/dL Creatinine (0.55-1.02) mg/dL Est GFR (CKD-EPI 2020) (mL/min/1.73m2) Glucose (74-106) mg/dL Calcium (8.5-10.1) mg/dL Total Bilirubin (0.2-1.0) mg/dL AST (15-37) U/L ALT (14-59) U/L Alkaline Phosphatase (46-116) U/L C-Reactive Protein (0.0-0.3) mg/dL Total Protein (6.4-8.2) g/dL Albumin (3.4-5.0) g/dL HPI General Mode of arrival: ambulatory . Date/Time Provider Initiated Documentation: 07/08/22 23:51 . Limitations to Documentation: no limitations . Information obtained by: patient . HPI Narrative: Patient is a 27-year-old female with a history of fentanyl and cocaine use presents for right ear pain for the past 3 weeks, now worse today. Patient states she initially noticed lesions near her earlobe which were painful and itchy which she began to scratch. She states since then the area has become more inflamed and painful and is now spreading down into the right side of her neck. She denies any known fever. She denies any difficulty swallowing or breathing. She has not taken any medication for pain. Patient states she was incarcerated yesterday and states the symptoms of gotten worse since then but denies any new injury. She denies any history of IV drug use. She states she mainly smokes fentanyl and cocaine and last use was today. She denies any known bites or new exposures, lotions or make-up. She denies any recent ear piercings. Related Data Home Medications Medication Instructions Recorded Confirmed ciprofloxacin HCl 500 mg tablet 500 mg PO BID 10 days #20 tabs 07/09/22 clindamycin HCl 150 mg capsule 450 mg PO TID 7 days #63 caps 07/09/22 Previous Rx's Medication Instructions Recorded ciprofloxacin HCl 500 mg tablet 500 mg PO BID 10 days #20 tabs 07/09/22 clindamycin HCl 150 mg capsule 450 mg PO TID 7 days #63 caps 07/09/22 Allergies Allergy/AdvReac Type Severity Reaction Status Date / Time Opioids - Morphine Analogues Allergy Unverified 03/22/22 05:53 Penicillins Allergy Unverified 03/22/22 05:53 General Stated Complaint: EarProblem MARGIE: 4 Review of Systems All systems reviewed & are unremarkable except as noted in HPI and below Constitutional Constitutional: Reports as per HPI, Denies chills and Denies fever(s) Eyes Eyes: Denies blurry vision ENT Ears, Nose, Mouth, and Throat: Denies dizziness, Reports otalgia, Denies sore throat and Denies throat swelling Cardiovascular Cardiovascular: Denies chest pain and Denies dyspnea Respiratory Respiratory: Denies cough and Denies dyspnea Gastrointestinal Gastrointestinal: Denies abdominal pain, Denies diarrhea and Denies vomiting Genitourinary Genitourinary: Denies hematuria and Denies dysuria Musculoskeletal Musculoskeletal: Denies back pain and Denies numbness Integumentary/Breasts Skin/Breast: Denies lesions and Denies rash Neurologic Neurologic: Denies dizziness, Denies localized weakness and Denies numbness Allergic/Immunologic Allergic/Immunologic: Denies throat swelling PFSH All Active Problems (Updated 07/09/22 @ 02:17 by Yenny Bell DO) Otitis externa of right ear (Acute) Cellulitis of right ear (Acute) Medical History Anxiety Cocaine use History of drug abuse Narcotic drug use Surgical History (Updated 07/09/22 @ 00:44 by Yenny Bell DO) No significant past surgical history Family History Mother No problems noted. Father Heart disease Social History Smoking/Tobacco Use Status: Never Smoking risk assessment performed?: Yes Alcohol Intake: never Drug use: Daily Substance use type: crack/cocaine and opiates Do you feel safe in your relationship?: Yes Exam Const General: cooperative, healthy appearing and no acute distress HENWY Head: normal to inspection Ears: hearing grossly normal bilaterally, TM's normal bilaterally, EAC abnormal erythema on the right, edema on the right and EAC tenderness on the right (There is moderate edema and tenderness of the entire external ear extending from the auricle down to the lobule) and external ear abnormal auricular tenderness on the right and pain with movement of external ear on the right Outer ear/TM images: 1. 4 x 2 mm crusted lesion noted just below helical sunday. 2. Multiple crusted lesions located on lobule of ear. Mouth: oral mucosae normal Eyes General: appearance normal, both eyes and all related structures Neck Neck: normal visual inspection Neck images: 1. There is tender lymphadenopathy extending from preauricular, inferior auricular and posterior auricular region as well as right anterior lateral cervical lymphadenopathy. Resp Effort & Inspection: normal respiratory effort and able to speak in complete sentences Cardio Rate: regular rate Skin General skin exam: no rashes or lesions noted Neuro General: patient alert, patient awake and patient oriented x3 Motor: muscle tone normal throughout Extrem General: normal to inspection and full ROM Psych Appearance: grossly normal Affect: normal affect Course Vital Signs Vital signs: Vital Signs Temperature 99.6 F 07/08/22 23:43 Pulse 96 H 07/08/22 23:43 Respiratory Rate 20 07/08/22 23:43 Blood Pressure 111/72 07/08/22 23:43 Pulse Oximetry 98 07/08/22 23:43 Temperature 99.6 F 07/08/22 23:43 Temperature Source Oral 07/08/22 23:43 Pulse 96 H 07/08/22 23:43 Respiratory Rate 20 07/08/22 23:43 Respiratory Effort Normal 07/08/22 23:50 Blood Pressure 111/72 07/08/22 23:43 Blood Pressure Position Sitting 07/08/22 23:43 Pulse Oximetry 98 07/08/22 23:43 Oxygen Delivery Method Room Air 07/08/22 23:43 Oxygen Flow Rate 0 07/08/22 23:43 Pain Level 7 07/08/22 23:43
[2022-07-09 00:34] LABS: Abs Immature Grans 0.02 10^3/uL (0.0-0.06); Absolute Basophil Count 0.02 10^3/uL (0.0-0.2); Absolute Eosinophil Count 0.07 10^3/uL (0.0-0.7); Absolute Lymphocyte Count 0.78 10^3/uL (1.2-3.4); Absolute Monocyte Count 0.66 10^3/uL (0.1-0.8); Absolute Neutrophil Count 8.02 10^3/uL (1.2-6.7); Basophils % 0.2; Eosinophils % 0.7; HCT 39.6 % (36.0-46.0); HGB 12.7 g/dL (11.2-15.7); Immature Grans % 0.2; Lymphocytes % 8.2; MCH 26.5 pg (27.0-33.0); MCHC 32.1 % (32.0-36.0); MCV 83 fL (80-95); MPV 8.6 fL (8.0-11.0); Monocytes % 6.9; Neutrophils % 83.8; Platelet Count 288 10^3/uL (130-400); RBC 4.79 10^6/uL (3.93-5.22); RDW 13.1 % (11.7-14.6); RDW-SD 39.7 fL; WBC 9.57 10^3/uL (4.4-10.8)
[2022-07-09] MEDS: Ketorolac 30 MG/ML VIAL IVP (00:34)
[2022-07-09] MEDS: Normal Saline 1,000 ML 1000 ML IV (00:35)
[2022-07-09] MEDS: Omnipaque 350 MG/ML 100 ML BTL IJ (00:38)
[2022-07-09] MEDS: Normal Saline - Diluent 50 ML VIAL IJ (00:38)
[2022-07-09] MEDS: Normal Saline Flush 10 ML SYR IVP (00:39)
[2022-07-09 00:44] LABS: ESR 9 mm/hr (0-20)
[2022-07-09 00:55] LABS: ALT 45 U/L (14-59); AST 26 U/L (15-37); Albumin 3.9 g/dL (3.4-5.0); Alkaline Phosphatase 85 U/L (46-116); Anion Gap 4.8 mmol/L (3-11); BUN 14 mg/dL (7-18); Bilirubin, Total 0.6 mg/dL (0.2-1.0); CO2 33.2 mmol/L (21.0-32.0); CREATININE 0.7 mg/dL (0.55-1.02); Calcium 8.8 mg/dL (8.5-10.1); Chloride 100 mmol/L (98-107); Estimated GFR 119.99 (mL/min/1.73m2); Glucose 104 mg/dL (74-106); Potassium 3.3 mmol/L (3.5-5.1); Sodium 138 mmol/L (136-145); Total Protein 7.5 g/dL (6.4-8.2)
[2022-07-09 00:57] LABS: C-Reactive Protein 2.56 mg/dL (0.0-0.3)
[2022-07-09] MEDS: CLINDAMYCIN 600 MG/50 ML BAG 100 MG IVPB (01:52)
--- NOTE | 2022-07-09 01:59 | DI.VRAD_ITS ---
PROCEDURE INFORMATION: Exam: CT Neck With Contrast Exam date and time: 07/09/2022 12:41 AM Age: 27 years old Clinical indication: Patient HX: R ear infection/lesion, neck lymphadenopathy. R/O abscess ear/temporal/auricular area; Additional info: Ear pain and swelling for 2 weeks TECHNIQUE: Imaging protocol: Computed tomography of the neck with contrast. Radiation optimization: All CT scans at this facility use at least one of these dose optimization techniques: automated exposure control; mA and/or kV adjustment per patient size (includes targeted exams where dose is matched to clinical indication); or iterative reconstruction. Contrast material: OMNIPAQUE 350; Contrast volume: 100 ml; Contrast route: INTRAVENOUS (IV); COMPARISON: MRI - BRAIN WO CONTRAST 05/09/2016 4:25 PM FINDINGS: Pharynx: Unremarkable. No significant tonsillar enlargement. Larynx: Unremarkable. Epiglottis is normal. Prevertebral and retropharyngeal spaces: Unremarkable. Salivary glands: Normal. Glands are normal in size. Thyroid: Normal. No enlarged or calcified nodules. Lymph nodes: See Soft tissues finding. Mastoid air cells: Unremarkable. Trachea: Visualized trachea is unremarkable. Lungs: Unremarkable as visualized. Bones/joints: Unremarkable. No acute fracture. Soft tissues: There is fat stranding and subcutaneous edema of the right ear. There are mild surrounding enlarged periauricular lymph nodes. Enlarged lymph nodes along the cervical chain and posterior triangle on the right. IMPRESSION: There is fat stranding and subcutaneous edema of the right ear. Findings are suggestive of otitis externa. There are mild surrounding enlarged periauricular lymph nodes. Enlarged lymph nodes along the cervical chain and posterior triangle on the right. Dictated and Authenticated by: Bernardo García MD. Ordering:EVAN Ramon MD
[2022-07-09] MEDS: CIPROFLOXACIN 400 MG/200 ML BAG 200 MG IVPB (02:23)
[2022-07-09 03:30] VITALS: BP 127/90; PULSE 98; RESP 18; O2SAT 98
--- NOTE | 2022-07-09 07:08 | NUR.NOTE ---
Nursing Note: Referral faxed to [facility] for severe otitis externa/this week.
== END 2022-07-09 03:32 | disposition home or self-care (01) ==
LOC: ER 07-09 03:00
PROVIDERS: Emergency Provider Physician Assistant; PCP Nurse Practitioner
DX: H60.91 Unspecified otitis externa, right ear (principal); H60.11 Cellulitis of right external ear
CPT/HCPCS: 70491; 80053; 81025; 85652; 96361; 96365; 96367; 96375; 99285; 85025; 86140; 99284; J0744; J1885; J3490

== ENCOUNTER 2024-08-07 07:34 | Emergency (ER) | payer MEDICAID, SELFPAY ==
[2024-08-07 07:38] VITALS: BP 103/69; PULSE 71; RESP 12; TEMP 36.6; O2SAT 100
[2024-08-07 07:49] VITALS: BP 103/69; PULSE 71; RESP 12; TEMP 36.6; O2SAT 100
[2024-08-07 08:24] LABS: Bilirubin Negative (Negative); Blood Negative (Negative); Clarity Sl Cloudy (Clear); Glucose Negative (Negative); Ketones Negative (Negative); Leukocyte Esterase Negative (Negative); Nitrite Negative (Negative); Specific Gravity 1.025 (1.005-1.025); Urobilinogen 0.2 mg/dL (Up to 0.2)
--- NOTE | 2024-08-07 08:58 | ED.GENADUL_ITS ---
Discharge Plan Disposition Patient Disposition: Home Condition: Stable Discharge Details Clinical Impression: Dysuria, Bacterial vaginosis Primary Care Provider: Terry Armenta ED Provider: Patrica Delatorre Home Meds and New Rx's Prescriptions: New metronidazole 500 mg tablet 500 mg PO BID 7 Days Qty: 14 0RF phenazopyridine [Pyridium] 100 mg tablet 100 mg PO TID PRNQty: 20 0RF ondansetron 4 mg tablet,disintegrating 4 mg PO Q6H PRN (Reason: nausea and vomiting) Qty: 30 0RF No Action trazodone 50 mg tablet 50 mg PO DAILY Patient Comments: TAKE 1 TABLET BY MOUTH EVERY DAY prazosin 1 mg capsule 3 mg PO HS Patient Comments: TAKE 3 CAPSULES BY MOUTH AT BEDTIME sertraline 100 mg tablet 100 mg PO DAILY Patient Comments: TAKE 1 TABLET BY MOUTH EVERY DAY buprenorphine-naloxone 8-2 mg tablet, sublingual 3 tab SUBLINGUAL DAILY Patient Comments: DISSOLVE 3 TABLETS UNDER THE TONGUE DAILY FOR 7 DAYS Discharge Instructions Instructions: Bacterial Vaginosis ED Additional Instructions: Urinalysis does not demonstrate that you have a UTI. You do have signs of bacterial overgrowth in the vagina called bacterial vaginosis. This can be treated with medication called metronidazole which was sent to the pharmacy. Do not drink alcohol while taking this medication. It can be upsetting to your stomach, so Zofran was also sent to the pharmacy. I have also prescribed Pyridium to use as needed for dysuria or burning with urination, this can turn your urine and abnormal color. Please follow-up with woman's wellness or PCP for any ongoing issues HPI General Date/Time Provider Initiated Documentation: 08/07/24 07:51 . Limitations to Documentation: no limitations . Information obtained by: patient . HPI Narrative: 29-year-old female without significant past medical history presents for evaluat ion of dysuria. She reports that about 2 weeks ago she had intercourse and the condom broke. She reports that she has been having a lot of burning with urination and urinary urgency and frequency. She has not had any abdominal pain, fevers or fever or chills. She reports that she there was some concern being part of the condo might still be in her vagina, but she is not having any vaginal itching, discharge or pain. Related Data Home Medications ?Medication ?Instructions ?Recorded ?Confirmed buprenorphine 8 mg-naloxone 2 mg 3 tab sublingual DAILY 08/07/24 08/07/24 sublingual tablet metronidazole 500 mg tablet 500 mg PO BID 7 days #14 tabs 08/07/24 ondansetron 4 mg disintegrating 4 mg PO Q6H PRN nausea and 08/07/24 tablet vomiting #30 tabs phenazopyridine 100 mg tablet 100 mg PO TID PRN #20 tabs 08/07/24 (Pyridium) prazosin 1 mg capsule 3 mg PO HS 08/07/24 08/07/24 sertraline 100 mg tablet 100 mg PO DAILY 08/07/24 08/07/24 trazodone 50 mg tablet 50 mg PO DAILY 08/07/24 08/07/24 Previous Rx's ?Medication ?Instructions ?Recorded metronidazole 500 mg tablet 500 mg PO BID 7 days #14 tabs 08/07/24 ondansetron 4 mg disintegrating 4 mg PO Q6H PRN nausea and 08/07/24 tablet vomiting #30 tabs phenazopyridine 100 mg tablet 100 mg PO TID PRN #20 tabs 08/07/24 (Pyridium) Allergies Allergy/AdvReac Type Severity Reaction Status Date / Time Opioids - Morphine Analogues Allergy Unknown Unverified 08/07/24 07:44 Penicillins Allergy Unknown Unverified 08/07/24 07:44 General Stated Complaint: Urinary MARGIE: 3 Exam Narrative Exam Narrative: Review of Systems: All systems reviewed & are unremarkable except as noted in HPI and below Well-developed, no acute distress NCAT RRR Unlabored respiratory effort Nondistended abdomen , soft non tender, no CVAT pelvic deferred Course Vital Signs Vital signs: Vital Signs Temperature 36.6 C 08/07/24 07:38 Pulse 71 08/07/24 07:38 Respiratory Rate 12 08/07/24 07:38 Blood Pressure 103/69 08/07/24 07:38 Pulse Oximetry 100 08/07/24 07:38 Temperature 36.6 C 08/07/24 07:49 Temperature Source Temporal Artery Scan 08/07/24 07:49 Pulse 71 08/07/24 07:49 Respiratory Rate 12 08/07/24 07:49 Blood Pressure 103/69 08/07/24 07:49 Blood Pressure Position Sitting 08/07/24 07:49 Pulse Oximetry 100 08/07/24 07:49 Oxygen Delivery Method Room Air 08/07/24 07:49 Oxygen Flow Rate 0 08/07/24 07:49 Pain Level 7 08/07/24 07:49 Lab/Test Results Lab/Test Results: 08/07/24 08:49 Vaginal Vaginitis Screen - Pending Laboratory Tests Range/Units 08/07/24 07:55 Urine Color (Yellow) Yellow Urine Clarity (Clear) Sl Cloudy Urine pH (5-8) 6.0 Ur Specific Colbert (1.005-1.025) 1.025 Urine Protein (Neg-Trace) mg/dL Negative Urine Ketones (Negative) mg/dL Negative Urine Blood (Negative) Negative Urine Nitrite (Negative) Negative Urine Bilirubin (Negative) Negative Urine Urobilinogen (Up to 0.2) mg/dL 0.2 Ur Leukocyte Esterase (Negative) Negative Urine Glucose (Negative) mg/dL Negative POC- Test(urine) Negative Medical Decision Making Urgent evaluation of dysuria. Initial differential includes UTI, less likely vaginal infection given the lack of vaginal symptoms, doubt pyelonephritis or kidney stone. Patient has a benign abdominal exam. Her urinalysis was obtained and this is not infected. A vaginal pathogen swab was obtained and this was positive for BV. She will be treated with Flagyl for this. This likely explains her symptoms of itching and burning. Recommend follow-up with women's wellness or her PCP for any ongoing symptoms. Prescription for Flagyl, Zofran as needed and Pyridium sent to the pharmacy. Quality:SDOH Health Related Social Needs: No Data to Display PFSH All Active Problems (Updated 08/07/24 @ 10:28 by Patrica Delatorre MD) Bacterial vaginosis (Acute) Dysuria (Acute) Medical History (Updated 08/07/24 @ 10:28 by Patrica Delatorre MD) Cocaine use Narcotic drug use History of drug abuse Anxiety Surgical History (Updated 07/09/22 @ 00:44 by Yenny Bell DO) No significant past surgical history Family History Mother No problems noted. Father Heart disease Social History Smoking/Tobacco Use Status: Never Smoking risk assessment performed?: Yes Alcohol Intake: never Drug use: Daily Substance use type: marijuana Details: prior cocaine and opioid use Housing: apartment Do you feel safe at home: Yes Do you feel safe in your relationship?: Yes
[2024-08-07 09:30] VITALS: BP 97/68; PULSE 62; RESP 19; TEMP 36.7; O2SAT 98
[2024-08-07 10:37] VITALS: BP 110/70; PULSE 74; RESP 14; O2SAT 97
== END 2024-08-07 10:38 | disposition home or self-care (01) ==
PROVIDERS: Emergency Provider Emergency Medicine; PCP Nurse Practitioner
DX: N76.0 Acute vaginitis (principal); R30.0 Dysuria
CPT/HCPCS: 99283 ×2; 81025; 81003; 87480; 87510; 87660

== ENCOUNTER 2024-09-19 17:17 | Emergency (ER) | payer MEDICAID, SELFPAY ==
[2024-09-19 17:29] VITALS: BP 112/74; PULSE 72; RESP 15; TEMP 36.9; O2SAT 96
[2024-09-19 17:33] VITALS: BP 112/74; PULSE 72; RESP 15; TEMP 36.9; O2SAT 96
[2024-09-19 18:12] LABS: Bilirubin Negative (Negative); Blood Negative (Negative); Clarity Clear (Clear); Glucose Negative (Negative); Ketones Negative (Negative); Leukocyte Esterase Negative (Negative); Nitrite Negative (Negative); Specific Gravity <= 1.005 (1.005-1.025); Urobilinogen 0.2 mg/dL (Up to 0.2)
[2024-09-19 18:30] LABS: COVID-19 PCR Negative (Negative); Influenza A PCR Negative (Negative); Influenza B PCR Negative (Negative); RSV PCR Negative (Negative); Source Nasopharynx
--- NOTE | 2024-09-19 19:13 | NUR.NOTE ---
I have not gotten a chance to see this patient while she was in room 14, due to the fact I was between 2 other patients on the inside of the Dept. I was then informed by the night placement secretary that the patient left the department because she waiting too long.
--- NOTE | 2024-09-19 20:03 | W.ED.GENAD ---
Discharge Plan Disposition Patient Disposition: Eloped Discharge Details Clinical Impression: Nausea Primary Care Provider: Terry Armenta ED Provider: Patrica Delatorre Home Meds and New Rx's Prescriptions: No Action trazodone 50 mg tablet 50 mg PO DAILY Patient Comments: TAKE 1 TABLET BY MOUTH EVERY DAY prazosin 1 mg capsule 3 mg PO HS Patient Comments: TAKE 3 CAPSULES BY MOUTH AT BEDTIME sertraline 100 mg tablet 100 mg PO DAILY Patient Comments: TAKE 1 TABLET BY MOUTH EVERY DAY buprenorphine-naloxone 8-2 mg tablet, sublingual 3 tab SUBLINGUAL DAILY Patient Comments: DISSOLVE 3 TABLETS UNDER THE TONGUE DAILY FOR 7 DAYS Rx Instructions: 24MG total HPI General Date/Time Provider Initiated Documentation: 09/19/24 17:49. Limitations to Documentation: no limitations. Information obtained by: patient. HPI Narrative: 29-year-old female with past medical history of opiate use disorder on buprenorphine presents for evaluation of nausea and fatigue. She reports the symptoms are associated with a positive test at home. She states that her last menstrual period was on August 15 and she is currently 3 days late. She is sexually active with 1 partner. She states that she took2 tests at home and both were positive. She reports nausea and extreme tiredness, but she has not had any vomiting. She reports that she has some abdominal cramping, but no significant abdominal pain. She states that she feels like she is about to start her period. She denies any vaginal bleeding. He has never been before. Related Data Home Medications ?Medication ?Instructions ?Recorded ?Confirmed buprenorphine 8 mg-naloxone 2 mg 3 tab sublingual DAILY 08/07/24 09/19/24 sublingual tablet prazosin 1 mg capsule 3 mg PO HS 08/07/24 09/19/24 sertraline 100 mg tablet 100 mg PO DAILY 08/07/24 09/19/24 trazodone 50 mg tablet 50 mg PO DAILY 08/07/24 09/19/24 Allergies Allergy/AdvReac Type Severity Reaction Status Date / Time Penicillins Allergy Unknown Verified 09/19/24 17:34 General Stated Complaint: GenMedical MARGIE: 4 Exam Narrative Exam Narrative: Review of Systems: All systems reviewed & are unremarkable except as noted in HPI and below Well-developed, no acute distress NCAT PERRL, normal conjunctiva RRR Unlabored respiratory effort Nondistended abdomen Course Vital Signs Vital signs: Vital Signs Temperature 36.9 C 09/19/24 17:29 Pulse 72 09/19/24 17:29 Respiratory Rate 15 09/19/24 17:29 Blood Pressure 112/74 09/19/24 17:29 Pulse Oximetry 96 09/19/24 17:29 Temperature 36.9 C 09/19/24 17:33 Temperature Source Oral 09/19/24 17:29 Pulse 72 09/19/24 17:33 Respiratory Rate 15 09/19/24 17:33 Blood Pressure 112/74 09/19/24 17:33 Blood Pressure Position Sitting 09/19/24 17:29 Pulse Oximetry 96 09/19/24 17:33 Oxygen Delivery Method Room Air 09/19/24 17:29 Oxygen Flow Rate 0 09/19/24 17:29 Pain Level 7 09/19/24 17:33 Lab/Test Results Lab/Test Results: Laboratory Tests Range/Units 09/19/24 09/19/24 09/19/24 17:38 17:40 18:25 Beta HCG, Quant Cancelled Urine Color (Yellow) Yellow Urine Clarity (Clear) Clear Urine pH (5-8) 6.0 Ur Specific [place] (1.005-1.025) <= 1.005 Urine Protein (Neg-Trace) mg/dL Negative Urine Ketones (Negative) mg/dL Negative Urine Blood (Negative) Negative Urine Nitrite (Negative) Negative Urine Bilirubin (Negative) Negative Urine Urobilinogen (Up to 0.2) mg/dL 0.2 Ur Leukocyte Esterase (Negative) Negative Urine Glucose (Negative) mg/dL Negative COVID-19 Source Nasopharynx SARS-CoV-2 (PCR) (Negative) Negative Influenza Type A (PCR) (Negative) Negative Influenza Type B (PCR) (Negative) Negative RSV (PCR) (Negative) Negative POC- Test(urine) Negative Medical Decision Making Emergent evaluation nausea and positive test at home. Patient is hemodynamically stable and not having significant abdominal pain or vaginal bleeding. Her urinalysis and viral testing were sent at triage. Her bcbju-rt-feca test here was negative. Given that she has had 2 positive tests at home, I advised that like to get a blood test to ensure accurate results. The beta test was ordered. Shortly after I saw the patient, she was observed by registration to leave the hospital she did not return or notify anyone that she was departing. As far as I can tell the blood test was not sent and I do not have the result to notify her. Quality:SDOH Health Related Social Needs: No Data to Display PFSH All Active Problems (Updated 09/19/24 @ 19:12 by Patrica Delatorre MD) Nausea (Acute) Medical History (Updated 09/19/24 @ 19:12 by Patrica Delatorre MD) Cocaine use Narcotic drug use History of drug abuse Anxiety Surgical History (Updated 07/09/22 @ 00:44 by Yenny Bell DO) No significant past surgical history Family History Mother No problems noted. Father Heart disease Social History Smoking/Tobacco Use Status: Never Smoking risk assessment performed?: Yes Alcohol Intake: never Drug use: Daily Substance use type: marijuana Details: prior cocaine and opioid use Housing: apartment Do you feel safe at home: Yes Do you feel safe in your relationship?: Yes
== END 2024-09-19 19:15 | disposition left against medical advice (07) ==
PROVIDERS: Emergency Provider Emergency Medicine; PCP Nurse Practitioner
DX: R11.0 Nausea (principal); R53.83 Other fatigue; Z53.29 Procedure and treatment not carried out because of patient's decision for other reasons
CPT/HCPCS: 81025; 87637; 99283; 81003; 84702

== ENCOUNTER 2024-11-10 04:45 | Outpatient (CLI) | payer MEDICAID, SELFPAY ==
[2024-11-10 12:21] LABS: Abs Immature Grans 0.03 10^3/uL (0.0-0.06); HCT 39.2 % (36.0-46.0); HGB 13.0 g/dL (11.2-15.7); Immature Grans % 0.4 %; MCH 27.9 pg (27.0-33.0); MCHC 33.2 % (32.0-36.0); MCV 84 fL (80-95); MPV 9.6 fL (8.0-11.0); Platelet Count 343 10^3/uL (130-400); RBC 4.66 10^6/uL (3.93-5.22); RDW 13.8 % (11.7-14.6); RDW-SD 42.4 fL; WBC 8.51 10^3/uL (4.4-10.8)
[2024-11-11 10:37] LABS: HIV-1/2 Ag & Ab Screen Negative (Negative)
[2024-11-11 10:40] LABS: Hepatitis C Ab w Rflx HCV PCR Reactive (Negative)
[2024-11-11 10:41] LABS: Rubella IgG Ab (UVM) Positive (See Note)
[2024-11-12 12:05] LABS: HCV RNA Detection Quantitative 30000 IU/mL (Undetected); HCV RNA Qualitative Detected (Undetected)
[2024-11-12 14:46] LABS: Syphilis IgG w/Reflex Nonreactive (Nonreactive)
== END 2024-11-10 04:46 | disposition home or self-care (01) ==
LOC: LBO 04:46
PROVIDERS: PCP Nurse Practitioner; Visit Provider Advanced Practice Midwife
DX: Z34.91 Encounter for supervision of normal pregnancy, unspecified, first trimester (principal)
CPT/HCPCS: 36415; 81220; 81222; 86787; 86803; 86850; 86900; 86901; 87340; 87389; 87522; 85025; 86762; 86780

== ENCOUNTER 2024-11-10 11:45 | Outpatient (REF) | payer MEDICAID, SELFPAY ==
--- NOTE | 2024-11-10 10:10 | PAPFT_PTH ---
PATIENT: Herlinda Paulson LOC: [facility] U#:[id number] AGE/SX: 29/F ROOM: RE11/10/[address]: Joan Covington : 1995 BED: DIS: 11/10/2024 SPEC #: [id number] RECD: 11/10/24 13:08 STATUS: JOSH REBrisa #: [id number] KARINA: 11/10/24 10:[address]: Joan Covington DEPT: [facility] Cytology RECD BY: Shannon Barrow ENTERED: 11/10/24 13:08 SP TYPE: PAPFT OTHR DR: Conner Armenta Tissues: 1 - CX/ENDOCX FOR PAP SMEARS Procedures: PAP THIN PREP/UVM Screening HPV DNA PROBE Comments: [id number] (HPV 16 & 18/45) (CHLAMYDIA/GC)
[2024-11-10 16:33] LABS: Cannabinoids THC Positive (Negative); METHADONE URINE SCREEN Negative (Negative)
[2024-11-11 11:09] LABS: Fentanyl Scr w/Rfx Confirm Positive ng/mL (<1)
[2024-11-11 11:56] LABS: Chlamydia Result Negative (Negative); GC Result Negative (Negative)
[2024-11-12 10:03] LABS: Norfentanyl Confirmation Negative ng/mL (<10)
== END 2024-11-10 11:46 | disposition home or self-care (01) ==
LOC: LBN 11:45
PROVIDERS: PCP Nurse Practitioner; Visit Provider Advanced Practice Midwife
DX: Z34.90 Encounter for supervision of normal pregnancy, unspecified, unspecified trimester (principal); F12.90 Cannabis use, unspecified, uncomplicated; Z12.4 Encounter for screening for malignant neoplasm of cervix
CPT/HCPCS: 80307; 80348; 80354; 87491; 87591; 88142; 87086; 87624

== ENCOUNTER 2024-11-27 17:38 | Emergency (ER) | payer MEDICAID, SELFPAY ==
[2024-11-27 17:41] VITALS: BP 113/67; PULSE 71; RESP 16; TEMP 36.5; O2SAT 95
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
== END 2024-11-27 18:28 | disposition home or self-care (01) ==
PROVIDERS: Emergency Provider Physician Assistant; PCP Nurse Practitioner
DX: J02.9 Acute pharyngitis, unspecified (principal); Z3A.14 14 weeks gestation of pregnancy
CPT/HCPCS: 99282 ×2; 87880; 87081

== ENCOUNTER 2024-12-15 15:58 | Outpatient (CLI) | payer MEDICAID, SELFPAY ==
[2024-12-15 11:39] LABS: ALT 30 U/L (14-59); AST 20 U/L (15-37); Albumin 3.2 g/dL (3.4-5.0); Alkaline Phosphatase 61 U/L (46-116); Anion Gap 7.9 mmol/L (3-11); BUN 12 mg/dL (7-18); Bilirubin, Total 0.2 mg/dL (0.2-1.0); CO2 27.1 mmol/L (21.0-32.0); Calcium 8.8 mg/dL (8.5-10.1); Chloride 103 mmol/L (98-107); Estimated GFR 128.52 (mL/min/1.73m2); Glucose 76 mg/dL (74-106); Potassium 3.7 mmol/L (3.5-5.1); Sodium 138 mmol/L (136-145); Total Protein 7.1 g/dL (6.4-8.2)
== END 2024-12-15 15:59 | disposition home or self-care (01) ==
LOC: LBO 15:58
PROVIDERS: PCP Student in an Organized Health Care Education/Training Program; Visit Provider Advanced Practice Midwife
DX: B19.20 Unspecified viral hepatitis C without hepatic coma (principal); Z34.91 Encounter for supervision of normal pregnancy, unspecified, first trimester
CPT/HCPCS: 36415; 80053

== ENCOUNTER 2025-03-06 17:26 | Outpatient (CLI) | payer MEDICAID, SELFPAY ==
[2025-03-06 18:14] VITALS: BP 117/67; PULSE 94; TEMP 37
[2025-03-06] MEDS: DEXTROSE 5%-LACTATED RINGERS 1,000 ML 999 ML IV ×2 (19:00→20:05)
[2025-03-06] MEDS: Ondansetron 4 MG/2 ML VIAL IVP (19:23)
--- NOTE | 2025-03-06 20:41 | W.OBNST ---
Date of service: 03/06/25 Time of Service: 20:41 NST Evaluation Reason for NST Reasons for Nonstress Test: OTHER, SEE COMMENT Reason for NST Other: nausea/vomiting Gestational Age Gestational Age in Weeks and Days: 28 Weeks and 1Days Test and Monitor Explained Test/Monitor Explained: Test Explained, Monitor Explained and Patient Verbalized Understanding Vital Signs Blood Pressure: 117/67 Pulse: 94 Temperature: 98.6 F Weight: 173 lb Urine Results Urine Protein: Positive Urine Ketones: Positive Urine Glucose: Negative Urine Blood: Negative NST Information Date on Monitor: 03/06/25 Time on Monitor: 18:04 Date off Monitor: 03/06/25 Time off Monitor: 19:47 Total Time on Monitor: 103 NST Interventions: PO Hydration and IV Fluids NST Evaluation Patient States Movement: Present FHR Baseline: 140 Variability: Moderate 6-25 bpm Accelerations: 15x15 Decelerations: None NST Results: Reactive Note Ultrasound Done: N/A. NST Note Note: IVF 2 liters given to clear ketones zofran 4 mg IV for nausea pt able to tolerate PO intake at discharge NST Reviewed and Verified by: Jacey Lynn
[2025-03-06 20:42] VITALS: BP 117/67; PULSE 94; TEMP 37
[2025-03-06] MEDS: Acetaminophen 325 MG TAB 650 MG PO (20:44)
== END 2025-03-06 21:17 ==
LOC: BCD 17:26 → OBS 17:56
PROVIDERS: PCP Student in an Organized Health Care Education/Training Program; Visit Provider Advanced Practice Midwife
DX: O99.891 Other specified diseases and conditions complicating pregnancy (principal); Z3A.28 28 weeks gestation of pregnancy; R11.2 Nausea with vomiting, unspecified; R82.4 Acetonuria; R80.9 Proteinuria, unspecified
CPT/HCPCS: 96360; 96361; 59025; J2405

== ENCOUNTER → 2025-03-09 01:36 | Outpatient (CLI) | payer MEDICAID, SELFPAY ==
--- NOTE | 2025-03-09 06:15 | DI.US_ITS ---
Exam(s) US OB VIVIAN WEIGHT EXAM: US OB VIVIAN WEIGHT CLINICAL HISTORY: ,OPOID DEPENDENCE,DRUG USE,Z34.90,f11.20,o99.321. TECHNIQUE: Transabdominal obstetrical ultrasound performed. COMPARISON: US PELVIS TRANSVAG from 05/09/2016 FINDINGS: Number of fetuses: 1 position: CEPHALIC Placental location: There is a grade 1 posterior placenta. No evidence of previa. BIOMETRIC DATA: BPD: 6.77cm, 27weeks 2days HC: 26.58cm, 29weeks AC: 22.4cm, 26weeks 6days FL: 5.36cm, 28weeks 3days EFW: 1,099.48g, 2lb 6.33oz, 10.8% Composite Age: 27weeks 6days GORDO: 06/02/2025 Heart Rate: 118bpm Amniotic fluid index: 10.37cm. The largest pocket is 5.1 cm. IMPRESSION: 1. Single live intrauterine gestation as above. 2. Estimated weight is 1099gms. This is the 11th percentile. 3. Amniotic fluid index is 10.4 cm. The largest pocket measures 5.1 cm. DATA REPOSITORY:
== END ==
LOC: DI 01:36
PROVIDERS: PCP Student in an Organized Health Care Education/Training Program; Visit Provider Advanced Practice Midwife
DX: O99.323 Drug use complicating pregnancy, third trimester (principal); F11.20 Opioid dependence, uncomplicated; Z34.93 Encounter for supervision of normal pregnancy, unspecified, third trimester; Z3A.36 36 weeks gestation of pregnancy
CPT/HCPCS: 76816

== ENCOUNTER 2025-03-09 01:49 | Outpatient (CLI) | payer MEDICAID, SELFPAY ==
[2025-03-09 10:58] LABS: HCT 32.6 % (36.0-46.0); HGB 10.8 g/dL (11.2-15.7); MCH 27.1 pg (27.0-33.0); MCHC 33.1 % (32.0-36.0); MCV 82 fL (80-95); MPV 9.2 fL (8.0-11.0); Platelet Count 297 10^3/uL (130-400); RBC 3.98 10^6/uL (3.93-5.22); RDW 13.0 % (11.7-14.6); RDW-SD 38.5 fL; WBC 7.78 10^3/uL (4.4-10.8)
[2025-03-09 11:15] LABS: Glucose,1 Hr (Glucola) 99 mg/dL (80-140)
[2025-03-09 11:18] LABS: ALT 24 U/L (10-49); AST 29 U/L (<34); Albumin 3.8 g/dL (3.2-5.0); Alkaline Phosphatase 102 U/L (46-116); Anion Gap 7 mmol/L (3-11); BUN 7 mg/dL (9-23); Bilirubin, Total 0.30 mg/dL (0.2-1.2); CO2 23.0 mmol/L (20.0-31.0); Calcium 7.3 mg/dL (8.3-10.6); Chloride 107 mmol/L (98-107); Glucose 99 mg/dL (74-106); Potassium 3.1 mmol/L (3.5-5.1); Sodium 137 mmol/L (136-145); Total Protein 6.7 g/dL (5.7-8.2)
[2025-03-09 20:34] LABS: Hepatitis C Ab w Rflx HCV PCR Reactive (Negative)
[2025-03-10 11:55] LABS: HCV RNA Detection Quantitative 167000 IU/mL (Undetected); HCV RNA Qualitative Detected (Undetected)
== END 2025-03-09 01:50 | disposition home or self-care (01) ==
LOC: LBO 01:49
PROVIDERS: PCP Student in an Organized Health Care Education/Training Program; Visit Provider Advanced Practice Midwife
DX: B19.20 Unspecified viral hepatitis C without hepatic coma (principal); Z34.92 Encounter for supervision of normal pregnancy, unspecified, second trimester
CPT/HCPCS: 36415; 80053; 82950; 85027; 86803; 87522

== ENCOUNTER 2025-03-09 09:55 | Outpatient (REF) | payer MEDICAID, SELFPAY ==
[2025-03-09 11:12] LABS: Cannabinoids THC Negative (Negative); Fentanyl Scr w/Rflx to Conf, U Negative (Negative)
== END 2025-03-09 09:56 | disposition home or self-care (01) ==
LOC: LBN 09:55
PROVIDERS: PCP Student in an Organized Health Care Education/Training Program; Visit Provider Advanced Practice Midwife
DX: Z34.92 Encounter for supervision of normal pregnancy, unspecified, second trimester (principal)
CPT/HCPCS: 80307; 80348

== ENCOUNTER 2025-03-23 01:26 | Outpatient (CLI) | payer MEDICAID, SELFPAY ==
[2025-03-24 11:39] LABS: HSV Type 2 Ab, IgG Negative (Negative)
[2025-03-25 15:14] LABS: Parvovirus B19 Ab, IgG Positive (Negative); Parvovirus B19 Ab, IgM Negative (Negative)
[2025-03-25 20:29] LABS: CMV Ab, IgM Negative (Negative)
== END 2025-03-23 01:27 | disposition home or self-care (01) ==
LOC: LBO 01:26
PROVIDERS: PCP Student in an Organized Health Care Education/Training Program; Visit Provider Advanced Practice Midwife
DX: O36.5930 Maternal care for other known or suspected poor fetal growth, third trimester, not applicable or unspecified (principal)
CPT/HCPCS: 36415; 86644; 86645; 86695; 86696; 86747; 86777; 86778

== ENCOUNTER 2025-04-05 18:36 | Outpatient (CLI) | payer MEDICAID, SELFPAY ==
[2025-04-05 19:11] VITALS: BP 116/65; PULSE 80
--- NOTE | 2025-04-06 07:26 | W.OBNST ---
Date of service: 04/05/25 Time of Service: 18:00 NST Evaluation Reason for NST Reasons for Nonstress Test: DECREASED MOVEMENT Gestational Age Gestational Age in Weeks and Days: 32 Weeks and 3Days Test and Monitor Explained Test/Monitor Explained: Test Explained, Monitor Explained and Patient Verbalized Understanding Vital Signs Blood Pressure: 116/65 Pulse: 80 Urine Results Urine Protein: Negative Urine Ketones: Negative Urine Glucose: Negative Urine Blood: Negative NST Information Date on Monitor: 04/05/25 Time on Monitor: 18:36 Date off Monitor: 04/05/25 Time off Monitor: 18:58 Total Time on Monitor: 22 NST Interventions: None Contraction Frequency: 0 NST Evaluation Patient States Movement: Present FHR Baseline: 125 Variability: Moderate 6-25 bpm Accelerations: 15x15 Decelerations: None NST Results: Reactive Note Ultrasound Done: N/A. NST Note Note: Herlinda called and reported decreased movement and a brown tinged discharge. She denies itching or burning. Reactive NST and very active baby. vaginal path screen sent. Await results. NST Reviewed and Verified by: Joan Covington
[2025-04-06 07:27] VITALS: BP 116/65; PULSE 80
== END 2025-04-05 19:14 ==
LOC: BCD 18:36 → OBS 18:53
PROVIDERS: PCP Student in an Organized Health Care Education/Training Program; Visit Provider Advanced Practice Midwife
DX: O36.8131 Decreased fetal movements, third trimester, fetus 1 (principal); Z3A.28 28 weeks gestation of pregnancy
CPT/HCPCS: 59025; 87480; 87510; 87660

== ENCOUNTER 2025-04-07 13:53 | Outpatient (CLI) | payer MEDICAID, SELFPAY ==
--- NOTE | 2025-04-07 | DI.US_ITS ---
Exam(s) US OB VIVIAN WEIGHT EXAM: US OB VIVIAN WEIGHT CLINICAL HISTORY: nonreassuring NST, r/o PTL. TECHNIQUE: Transabdominal obstetrical ultrasound was performed. COMPARISON: US US OB VIVIAN WEIGHT from 03/09/2025 FINDINGS: There is a single viable intrauterine gestation with cardiac activity identified-144 bpm The fetus is presently in cephalic position . Amniotic fluid: There is a normal amount of amniotic fluid with an VIVIAN of 18.3cm. Placental location: The placenta is posterior grade 2,with no evidence of placenta previa. Dating parameters place this at approximately 30 weeks and 4 days gestational age, implying GORDO of 06/12/2025. BPD measures 32 weeks and 0 days HC measures 31 week and 0 days AC measures 29 weeks and 6 days FL measures 30 weeks and 6 days Estimated weight is 1577 gm-3 pounds, 8 ounces Fetus is at the less than 3rd percentile on the Hadlock scale. ANATOMY: urinary bladder is grossly distended. Suspect possible distal obstruction such as urethral valves. There is no hugh ureter and there is no hydronephrosis. UMBILICAL ARTERY DOPPLER READINGS: Within normal limits. Less than 95th percentile for PI, RI, and S/D ratio measurements IMPRESSION:: Viable 3rd trimester gestation, as described above. The urinary grossly distended, bringing find the possibility of more distal obstruction such as posterior urethral valves. There is, however, no hydronephrosis nor hydroureter. Fetus is at the less than 3rd percentile on the Hadlock scale. DATA REPOSITORY:
[2025-04-07 14:31] VITALS: BP 117/75; PULSE 90
[2025-04-07 14:32] VITALS: BP 117/75; PULSE 90; TEMP 36.6
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
[2025-04-07 16:29] LABS: Cannabinoids THC Negative (Negative); Fentanyl Scr w/Rflx to Conf, U Negative (Negative)
[2025-04-07] MEDS: Betamet Acet/Betamet Na Ph Inj. 30 MG/5 ML 12 MG IM (16:30)
[2025-04-07 16:59] VITALS: BP 123/82; PULSE 71
--- NOTE | 2025-04-07 17:50 | W.OBNST ---
Date of service: 04/07/25 Time of Service: 17:50 NST Evaluation Reason for NST Reasons for Nonstress Test: DECREASED MOVEMENT and LABOR Reason for NST Other: Cramping/Discharge Gestational Age Gestational Age in Weeks and Days: 32 Weeks and 5Days Test and Monitor Explained Test/Monitor Explained: Test Explained, Monitor Explained and Patient Verbalized Understanding Vital Signs Blood Pressure: 117/75 Pulse: 90 Temperature: 97.9 F Urine Results Urine Protein: Negative Urine Ketones: Negative Urine Glucose: Negative Urine Blood: Negative NST Information Date on Monitor: 04/07/25 Time on Monitor: 14:30 Date off Monitor: 04/07/25 Time off Monitor: 15:17 Total Time on Monitor: 47 NST Interventions: PO Hydration Contraction Frequency: Occasional NST Evaluation Patient States Movement: Present FHR Baseline: 135 Variability: Minimal <6 bpm Accelerations: None Decelerations: Variable NST Results: Non-Reactive Note Ultrasound Done: N/A (to the DI for EFW/VIVIAN). NST Note NST Reviewed and Verified by: Jacey Lynn
[2025-04-07 17:52] VITALS: BP 117/75; PULSE 90; TEMP 36.6
== END 2025-04-07 17:52 ==
LOC: BCD 13:54 → OBS 13:55
PROVIDERS: PCP Student in an Organized Health Care Education/Training Program; Visit Provider Advanced Practice Midwife
DX: O36.8131 Decreased fetal movements, third trimester, fetus 1 (principal); O47.03 False labor before 37 completed weeks of gestation, third trimester; Z3A.32 32 weeks gestation of pregnancy
CPT/HCPCS: 76816; 80307; 80348; 59025; 87081; G0378; J0702